=== PATIENT | male | born 1945 | race Two or more races ===

== ENCOUNTER 2024-12-07 21:22 | Inpatient (IN) | payer MEDICARE, MEDICAID ==
[~2024-12-07] VITALS: Ht 160 cm; Wt 75.2 kg
[~2024-12-07 21:22] MED LIST: MEMA1TAB5 PO
--- NOTE | 2024-12-07 21:40 | ED.PDOC ---
History of Present Illness HPI Comments 79 y/o M, with a limited known Hx of CHF, HTN, and STEMI, is BIBA for c/o chest and back pain and shortness of breath, today. Per EMS report, patient is a Azeri speaker and endorses on sudden and unprovoked additional onset of sternal chest pain that radiates towards his back 2x hours ago after being short of breath since 0900, this morning. Patient commented on not being concern with respiratory symptoms, initially, due to family members at home being sick, as well, and his son calling EMS after being en route, already, to their nearest ED facility, due to feeling uncomfortable with driving. He was noted to have been wound with a blood pressure of 212/96 and a SpO2 of 75%RA and wheezing in both upper and lower lung santana and was given 2x Albuterol and 1x Atrovent breathing treatment at 8LPM en route, with mild improvement. At time of assessment, patient still endorses on having pain but was stated to have a SpO2 of 97-98% with breathing treatment. He reports no recent strenuous activities, stressors, travel, or further relevant/pertinent information. He denies having any palpitations, nausea, vomiting, fever, chills, or other associated symptoms or modifiers at this time. 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 Operator, Other (IV acess) Past Medical History PAST MEDICAL HISTORY: CHF, HTN, PR (STEMI) Surgical History: Denies all surgeries Family History Family History: Unknown Social History Smoker: Non-Smoker Alcohol: Denies ETOH Use Drugs: Denies Drug Use Lives In: Home Respiratory: reports: shortness of breath Cardiovascular: reports: chest pain Musculoskeletal: reports: back pain All Other Systems: Reviewed and Negative (negative unless otherwise stated above or in HPI) Physical Exam General Appearance: No Apparent Distress, Normal HEENT: Normal ENT Inspection, Pharynx Normal, TMs Normal Neck: Full Range of Motion, Non-Tender, Normal, Normal Inspection Respiratory: Chest Non-Tender, No Accessory Muscle Use, No Respiratory Distress, Other (coarse breaths sounds, bilaterally, and tachypneic ) Cardiovascular: No Edema, No JVD, No Murmur, No Gallop, Normal Peripheral Pulses, Tachycardia Breast Exam: Deferred Gastrointestinal: No Organomegaly, Non Tender, No Pulsatile Mass, Normal Bowel Sounds, Soft Genitalia: Deferred Pelvic: Deferred Rectal: Deferred Extremities: No calf tenderness, Normal capillary refill, Normal inspection, Normal range of motion, Non-tender, No pedal edema Musculoskeletal : Apperance: Normal Neurologic: Alert, 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 Was a procedure done?: No Differential Dx Considerations may include: PR, PE, ACS, costochondritis, pericarditis, gastritis, gastroenteritis, URI, viral syndrome, musculoskeletal pain X-Ray, Labs, Meds, VS Vital Signs Date Time Temp Pulse Resp B/P (MAP) Pulse Ox O2 Delivery O2 Flow Rate FiO2 12/07/24 21:25 76 12/07/24 21:24 99.0 71 28 212/96 (134) 97 Lab Test 12/07/24 21:38 Range/Units White Blood Count 9.0 4.4-10.8 10^3/uL Red Blood Count 3.13 L 4.5-5.90 10^6/uL Hemoglobin 7.5 L 13.5-17.5 g/dL Hematocrit 25.0 L 41.0-53.0 % Mean Corpuscular Volume 80.0 80.0-100.0 fL Mean Corpuscular Hemoglobin 24.1 L 28.0-32.0 pg Mean Corpuscular Hemoglobin Concent 30.2 L 32.0-36.0 g/dL Red Cell Distribution Width 18.6 H 11.8-14.3 % Platelet Count 106 L 140-450 10^3/uL Mean Platelet Volume 11.3 H 6.9-10.8 fL Neutrophils (%) (Auto) 80.7 H 37.0-80.0 % Lymphocytes (%) (Auto) 11.1 10.0-50.0 % Monocytes (%) (Auto) 5.7 0.0-12.0 % Eosinophils (%) (Auto) 1.8 0.0-7.0 % Basophils (%) (Auto) 0.7 0.0-2.0 % Neutrophils # (Auto) 7.3 1.6-8.6 10 ^3/uL Lymphocytes # (Auto) 1.0 0.4-5.4 10 ^3/uL Monocytes # (Auto) 0.5 0-1.3 10 ^3/uL Eosinophils # (Auto) 0.2 0-0.8 10 ^3/uL Basophils # (Auto) 0.1 0-0.2 10 ^3/uL Nucleated Red Blood Cells 0.1 % Sodium Level 146 H 136-145 mmol/L Potassium Level 3.4 L 3.5-5.1 mmol/L Chloride Level 116 H 98-107 mmol/L Carbon Dioxide Level 23 20-31 mmol/L Anion Gap 7 5-15 Blood Urea Nitrogen 13 9-23 mg/dL Creatinine 0.84 0.700-1.30 mg/dL Glomerular Filtration Rate Calc 89 >90 mL/min BUN/Creatinine Ratio 15.5 10.0-20.0 Serum Glucose 171 H 74-106 mg/dL Calcium Level 7.7 L 8.7-10.4 mg/dL Troponin I High Sensitivity 32 </=54 ng/L B-Type Natriuretic Peptide 439.15 0-100 pg/mL Current Medications Medications (Trade) Dose Ordered Sig/Brandy Route Start Time Stop Time Status Last Admin Albuterol (Ventolin Medneb) 5 mg ONCE ONCE NEB 12/07/24 21:30 12/07/24 21:31 DC 12/07/24 21:46 Ipratropium [place] (Atrovent Medneb) 0.5 mg ONCE ONCE NEB 12/07/24 21:30 12/07/24 21:31 DC 12/07/24 21:46 Time of 1ST Reevaluation: 21:55 Reevaluation 1ST: Unchanged Patient Education/Counseling: Diagnosis, Treatment Family Education/Counseling: No Family Present Additional Information The following tests were ordered, and results were reviewed by me: CXR, troponin, CBC, BNP, BMP Additional Information was gathered from interviewing the following independent historians: EMT I reviewed and agreed with the following test results read by other providers: CXR I discussed treatment and results with medical personnel Departure 1 Departure Time of Disposition: 22:35 (Patient likely with a COPD versus CHF exacerbation. Patient receiving Lasix albuterol ipratropium and azithromycin.) Impression: Primary Impression: Shortness of breath Additional Impressions: Acute systolic (congestive) heart failure COPD exacerbation Disposition: ADMITTED INPATIENT Admit to: Med Surg Condition: Serious Critical Care Note Critical Care Time?: Yes Critical care comment: Acute shortness of breath Authorized and Performed by: Betty Lobo MD Total critical care time: Approximately 37 minutes Due to a high probability of clinically significant, life threatening deterioration, the patient required my highest level of preparedness to intervene emergently and I personally spent this critical care time directly and personally managing the patient. This critical care time included obtaining a history; examining the patient; pulse oximetry; ordering and review of studies; arranging urgent treatment with development of a management plan; evaluation of patient's response to treatment; frequent reassessment; and, discussions with other providers. This critical care time was performed to assess and manage the high probability of imminent, life-threatening deterioration that could result in multi-organ failure. It was exclusive of separately billable procedures and treating other patients and teaching time. Please see my other sections and the rest of the note for further information on patient assessment and treatment. Stability Stability form required: No Heart Score Heart Score: Heart Score Response (Comments) Value History Moderate Suspicious 1 EKG Normal 0 Age >65 2 Risk Factors >3 or Hx ASHD 2 Troponin 1-2 x's Normal limit 1 Total 6 I personally scribed for BETTY LOBO MD ([email or web address]) on 12/07/24 at 21:40. Electronically submitted by Jose Domingo ([email or web address]). BETTY LOBO MD Dec 07, 2024 21:40
[2024-12-07] MEDS: ALBUTEROL SULF 2.5 MG/0.5ML(0.5%) NEB SOLN NEB ONE (21:46)
[2024-12-07] MEDS: IPRATROPIUM BROM 0.5 MG/2.5ML INH SOL NEB ONE (21:46)
[2024-12-07 22:01] LABS: Basophils # (auto) 0.1 10 ^3/uL (0-0.2); Basophils % (auto) 0.7 % (0.0-2.0); Eosinophils # (auto) 0.2 10 ^3/uL (0-0.8); Eosinophils % (auto) 1.8 % (0.0-7.0); Hemoglobin 7.5 g/dL (13.5-17.5); Lymphocytes % (auto) 11.1 % (10.0-50.0); Mean Corpuscular Hemoglobin 24.1 pg (28.0-32.0); Mean Corpuscular Hgb Conc. 30.2 g/dL (32.0-36.0); Monocytes # (auto) 0.5 10 ^3/uL (0-1.3); Monocytes % (auto) 5.7 % (0.0-12.0); Neutrophils # (auto) 7.3 10 ^3/uL (1.6-8.6); Neutrophils % (auto) 80.7 % (37.0-80.0); Nucleated Red Blood Cells % 0.1 %; Red Blood Cells 3.13 10^6/uL (4.5-5.90); Red Cell Distribution Width 18.6 % (11.8-14.3)
[2024-12-07 22:07] LABS: Anion Gap 7 (5-15); Carbon Dioxide 23 mmol/L (20-31)
[2024-12-07 22:12] LABS: BUN/Creatinine Ratio 15.5 (10.0-20.0); Blood Urea Nitrogen 13 mg/dL (9-23)
[2024-12-07 22:13] LABS: Calcium 7.7 mg/dL (8.7-10.4); Chloride 116 mmol/L (98-107); Glucose 171 mg/dL (74-106); Potassium 3.4 mmol/L (3.5-5.1); Sodium 146 mmol/L (136-145)
--- NOTE | 2024-12-07 22:19 | DVH ---
CHEST RADIOGRAPH Indication: sob Technique: Single frontal view of the chest was obtained Comparison: None FINDINGS: Lines and Tubes: None Lungs: Bibasilar infiltrates Pleura: No effusion. No pneumothorax. Cardiomediastinal contours: Mild cardiomegaly Bones: No acute osseous abnormality. IMPRESSION: 1. Findings may represent congestive failure or pneumonia.
[2024-12-07 22:31] LABS: Platelet Count (auto) 106 10^3/uL (140-450)
[2024-12-07] MEDS: AZITHROMYCIN 250 MG TAB PO ONE (22:55)
[2024-12-07 23:00] VITALS: PULSE 58; RESP 19; O2SAT 95
[2024-12-07] MEDS: InsuLIN REG 1unit/0.01ml Soln (100units/ml) SC ONE (23:45)
[2024-12-07] MEDS: ACCU-CHEK COMFORT CURVE STRIP VI ONE (23:45)
[2024-12-08] VITALS (14 sets, daily range): BP systolic 137–155; BP diastolic 40–50; PULSE 62–79; RESP 16–20; TEMP 97.5–99.5; O2SAT 94–100
[2024-12-08] MEDS ORDERED: NITROGLYCERIN 0.4 MG SL TAB SL PRN
[2024-12-08] MEDS ORDERED: MORPHINE SULFATE INJ 2 MG/ml SYRG IV PRN
--- NOTE | 2024-12-08 00:18 | DVHHPRES ---
History of Present Illness Resident Creating Document: CAROLYN CARRERA RESIDENT History of Present Illness Patient is a 79-year-old male with past medical history of COPD, CHF, diabetes, rheumatoid arthritis, gastric ulcer, treated syphilis, hypertension, dyslipidemia, s/p aortic valve replacement, who came in due to shortness of luke aths. According to the patient and son at bedside, for the last 4-5 days he has been experiencing shortness of breath and dyspnea that has progressively gotten worse. Patient also notes a chest pain ongoing for the same duration of time intermittent in nature, burning in character and 6/10 in intensity, patient believes pain was brought on by eating, walking worsens the pain rest relieves the pain, similar symptoms of chest pain before in the past. Patient also notes having sick contacts; his son with flu-like symptoms and diarrhea. Per patient's daughter, patient has had a positive stool occult blood for which he is due to get a colonoscopy next month. On review of systems he is complaining of fatigue, sore throat, cough productive of beverly sputum, dyspnea, shortness of breath and dysuria. Serial troponins were 32, 39. Hemoglobin was 7.5, Hct 25 and chest x-ray showed CHF versus pneumonia. Past Medical History COPD, CHF, diabetes, rheumatoid arthritis, gastric ulcer, treated syphilis, hypertension, dyslipidemia, s/p aortic valve replacement Past Surgical History Aortic valve replacement, bilateral lower extremity surgeries Past Social History Smokin cigarettes per day for the past 60 years Alcohol: Occasionally Drugs: Denies Review of Systems Constitutional: Yes: Malaise; No: Fever, Chills, Sweats, Weakness, Other Eyes: No: Pain, Vision change, Conjunctivae inflammation, Eyelid inflammation, Other, Redness ENT: Nose discharge, Nose congestion, Throat pain; No: Ear pain, Ear discharge, Nose pain, Mouth pain, Mouth swelling, Throat swelling, Other Respiratory: Cough, Shortness of breath, SOB with excertion; No: Dry, Wheezing, Hemoptysis, Pleuritic Pain, Sputum, Wheezing, Other Cardiovascular: Chest Pain; No: Palpitations, Orthopnea, Paroxysmal Noc. Dyspnea, Edema, Lt Headedness, Other Gastrointestinal: No: Nausea, Vomiting, Abdominal Pain, Diarrhea, Constipation, Melena, Hematochezia, Other Genitourinary: Dysuria; No Frequency, No Incontinence, No Hematuria, No Retention, No Other Musculoskeletal: leg pain; No: other, neck pain, shoulder pain, arm pain, back pain, hand pain, foot pain Skin: No: Rash, Lesions, Jaundice, Bruising, Other Neurological: No: Weakness, Numbness, Incoordination, Change in speech, Confusion, Seizures, Other Allergies: Coded Allergies: NO KNOWN ALLERGIES (Unverified , 12/07/24) Exam Vital Signs Vital Signs Date Time Temp Pulse Resp B/P (MAP) Pulse Ox O2 Delivery O2 Flow Rate FiO2 12/07/24 22:57 98.6 74 19 173/53 (93) 95 98.6 12/07/24 21:46 Nasal Cannula* 6 44 General Appearance: Alert, Oriented X3, Cooperative, No acute distress HEENT: Atraumatic, PERRLA, EOMI, Mucous membr. moist/pink Respiratory: Other (Trace crackles, decreased bilateral breath sounds) Cardiovascular: Regular rate, Normal S1, Normal S2 Abdominal: Normal bowel sounds, Soft, No tenderness Extremities: Other (Decreased pedal pulse on the right, +1 lower extremity edema) Skin: No rashes, No significant lesion Neuro: Normal speech, Sensation intact Psych/Mental Status: Mental status NL, Mood NL Labs/Xrays Labs Test 12/07/24 23:25 12/07/24 22:43 12/07/24 21:38 Range/Units Troponin I High Sensitivity 39 </=54 ng/L White Blood Count 9.0 4.4-10.8 10^3/uL Red Blood Count 3.13 L 4.5-5.90 10^6/uL Hemoglobin 7.5 L 13.5-17.5 g/dL Hematocrit 25.0 L 41.0-53.0 % Mean Corpuscular Volume 80.0 80.0-100.0 fL Mean Corpuscular Hemoglobin 24.1 L 28.0-32.0 pg Mean Corpuscular Hemoglobin Concent 30.2 L 32.0-36.0 g/dL Red Cell Distribution Width 18.6 H 11.8-14.3 % Platelet Count 106 L 140-450 10^3/uL Mean Platelet Volume 11.3 H 6.9-10.8 fL Neutrophils (%) (Auto) 80.7 H 37.0-80.0 % Lymphocytes (%) (Auto) 11.1 10.0-50.0 % Monocytes (%) (Auto) 5.7 0.0-12.0 % Eosinophils (%) (Auto) 1.8 0.0-7.0 % Basophils (%) (Auto) 0.7 0.0-2.0 % Neutrophils # (Auto) 7.3 1.6-8.6 10 ^3/uL Lymphocytes # (Auto) 1.0 0.4-5.4 10 ^3/uL Monocytes # (Auto) 0.5 0-1.3 10 ^3/uL Eosinophils # (Auto) 0.2 0-0.8 10 ^3/uL Basophils # (Auto) 0.1 0-0.2 10 ^3/uL Nucleated Red Blood Cells 0.1 % Sodium Level 146 H 136-145 mmol/L Potassium Level 3.4 L 3.5-5.1 mmol/L Chloride Level 116 H 98-107 mmol/L Carbon Dioxide Level 23 20-31 mmol/L Anion Gap 7 5-15 Blood Urea Nitrogen 13 9-23 mg/dL Creatinine 0.84 0.700-1.30 mg/dL Glomerular Filtration Rate Calc 89 >90 mL/min BUN/Creatinine Ratio 15.5 10.0-20.0 Serum Glucose 171 H 74-106 mg/dL Calcium Level 7.7 L 8.7-10.4 mg/dL B-Type Natriuretic Peptide 439.15 0-100 pg/mL Assessment/Plan Assessment/Plan Acute hypoxic respiratory failure Possible community-acquired pneumonia: Gram-positive versus Gram-negative COPD exacerbation due to above - CXR: Findings may represent congestive failure or pneumonia - lower extremity venous Doppler: No deep venous thrombosis in the bilateral lower extremities - IV Rocephin, azithromycin 500 mg p.o. - ipratropium and albuterol med nebs Acute on chronic congestive heart failure Peripheral vascular disease Dyslipidemia Hypertension - BNP 439; CXR: Bibasilar infiltrates - lower extremity arterial Doppler: There is peripheral vascular disease in the right lower extremity evidence thigh monophasic waveforms. No significant stenosis in the right lower extremity. There is 60-75% stenosis in the left common femoral artery. Peripheral vascular disease in the rest of the left lower extremity without high-grade stenosis or occlusion. Bilateral anterior tibial an d peroneal arteries not visualized. - IV furosemide b.i.d. - resumed home medication atorvastatin 80 mg, Plavix 75 mg, amlodipine 5 mg Anemia, positive FOBT; MCV 80 Gastric ulcer - elevated LDH 253 (120-246), mildly elevated reticulocyte count 1.68 (0.5-1.5) - ordered iron panel - ordered stool occult blood - IV Protonix 40 mg - GI consulted Type 2 diabetes, Hb A1c 6.2 - mild sliding scale insulin History of rheumatoid arthritis - monitor DVT prophylaxis: Holding Goals of care: Full code, discussed for >16 minutes with patient, patient's son and daughter on 12/08/24 Plan discussed with patient Plan discussed with Dr. Bravo Plan discussed with: Patient, Daughter, Son, Other (RN) Date of Service: Dec 07, 2024 Billing Provider: GAYLE BRAVO MD Common Visit Codes: 71044-UMBXLOS INP/OBS CARE (HIGH) Secondary Visit Codes: 92340-[id number] CARE PLAN 30 MINUTES CAROLYN CARRERA Dec 08, 2024 00:18 GAYLE BRAVO MD Dec 08, 2024 18:15
[2024-12-08] MEDS: FUROSEMIDE 40 MG/4 ML VIAL IV ONE (00:31)
[2024-12-08 00:32] LABS: COVID19 ANTIGEN SOFIA FIA NEGATIVE (NEGATIVE); Rapid Influenza A Negative (Negative); Rapid Influenza B Negative (Negative)
[2024-12-08] MEDS: POTASSIUM EFFERVESENT TAB 25 MEQ PO ONE ×2 (01:00→03:36)
[2024-12-08] MEDS: cefTRIAXone 1GM/50ML D5W 50 ML IV ONE ×2 (01:00→02:55)
[2024-12-08] MEDS: DEXTROSE (50%) 50ML SYRG IV ONE ×3 (01:00→05:30)
[2024-12-08] MEDS: PANTOPRAZOLE 40 MG/10 ML VIAL INJ IV ONE ×2 (01:00→02:57)
[2024-12-08] MEDS: ACCU-CHEK COMFORT CURVE STRIP VI ONE ×2 (01:00→05:30)
[2024-12-08] MEDS: InsuLIN REG 1unit/0.01ml Soln (100units/ml) SC ONE ×2 (01:00→05:30)
[2024-12-08 01:40] LABS: Urine Bacteria None Seen /hpf (None Seen)
[2024-12-08 02:13] LABS: INR 1.19 (0.9-1.15); Prothrombin Time 12.4 sec (9.3-11.8)
[2024-12-08 02:20] LABS: Urine Blood Negative /uL (Negative); Urine Clarity Clear (Clear); Urine Color Light-Yellow (Yellow); Urine Protein, UAD TRACE (Negative); Urine Squamous Epithelial Cell None Seen /hpf (<5); Urine Urobilinogen Normal (Negative); Urine WBC 3 /HPF (0-3)
[2024-12-08 02:30] LABS: CRP High Sensitivity 0.63 mg/dL (<1.0); Magnesium 1.9 mg/dL (1.6-2.6)
[2024-12-08 02:33] LABS: % Iron Saturation 6.3 % (20-55)
[2024-12-08 02:35] LABS: Thyroid Stimulating Hormone 2.44 uIU/mL (0.55-4.78)
[2024-12-08] MEDS: AZITHROMYCIN 250 MG TAB PO ONE (02:56)
[2024-12-08 03:03] LABS: Erythrocyte Sedimentation Rate 34 mm/hr (0-20)
--- NOTE | 2024-12-08 04:04 | ECG ---
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
--- NOTE | 2024-12-08 04:30 | DVH ---
Bilateral lower extremity venous duplex Clinical History: CALF PAIN ON FLEXION/EXTENSION Comparison: None Technique: Duplex Doppler evaluation of the deep venous systems of both lower extremities from the co mmon femoral veins to the popliteal veins including color Doppler and spectral/pulsed waveform analys is was performed. Findings: RIGHT SIDE: The common femoral vein demonstrates appropriate compressibility and waveform variability. There is compressibility/patency of the great saphenous vein at the proximal thigh. The femoral vein demonstrates appropriate compressibility and waveform variability. The deep femoral vein demonstrates appropriate compressibility and waveform variability. The popliteal vein demonstrates appropriate compressibility and waveform variability. There is normal compressibility at the tibioperoneal trunk. LEFT SIDE: The common femoral vein demonstrates appropriate compressibility and waveform variability. There is compressibility/patency of the great saphenous vein at the proximal thigh. The femoral vein demonstrates appropriate compressibility and waveform variability. The deep femoral vein demonstrates appropriate compressibility and waveform variability. The popliteal vein demonstrates appropriate compressibility and waveform variability. There is normal compressibility at the tibioperoneal trunk. Impression: 1. No deep venous thrombosis in the bilateral lower extremities.
--- NOTE | 2024-12-08 04:36 | DVH ---
BILATERAL Lower Extremity Arterial Duplex Date: 12/08/2024 12:40 AM Clinical History: DEC/ABSENT PEDAL PULSE ON R Comparison: None Technique: Duplex Doppler evaluation including color Doppler and spectral/pulsed waveform analysis of the lower extremity arteries was performed. Finding: RIGHT: Peak systolic velocities are as follows: CAFETERIA HELPER 75 cm/s Deep femoral 35 cm/s SFA proximal 71 cm/s SFA mid-portion 51 cm/s SFA distal 63 cm/s Popliteal 45 cm/s Posterior tibial 40 cm/s Anterior tibial not visualized Peroneal not visualized Dorsalis pedis 40 cm/s The waveforms are monophasic. LEFT: Peak systolic velocities are as follows: CAFETERIA HELPER 202 cm/s Deep femoral 79 cm/s SFA proximal 128 cm/s SFA mid-portion 74 cm/s SFA distal 109 cm/s Popliteal 90 cm/s Posterior tibial 74 cm/s Anterior tibial not visualized Peroneal not visualized Dorsalis pedis 87 cm/s The waveforms are triphasic in the common femoral artery and biphasic in the remaining arteries in th e left lower extremity. REFERENCE VALUES, [facility] ([facility]) vascular Imaging Lab Criteria: Peak systolic velocity ranges (in cm/sec) are as follows: <150 cm/s - <20 % stenosis 150-200 cm/s - 20-49% stenosis 200-300 cm/s - 50-75% stenosis >300 cm/s -> 75% stenosis IMPRESSION: 1. There is peripheral vascular disease in the right lower extremity evidence thigh monophasic wavefo [place]. No significant stenosis in the right lower extremity. 2. There is 60-75% stenosis in the left common femoral artery. Peripheral vascular disease in the res t of the left lower extremity without high-grade stenosis or occlusion. 3. Bilateral anterior tibial and peroneal arteries not visualized.
[2024-12-08] MEDS ORDERED: AMLO1TAB22 PO (05:35)
[2024-12-08] MEDS ORDERED: ATOR-47 PO (05:50)
[2024-12-08] MEDS ORDERED: CLOP75TA70 PO (05:51)
[2024-12-08 05:54] LABS: Basophils # (auto) 0.1 10 ^3/uL (0-0.2); Basophils % (auto) 0.9 % (0.0-2.0); Eosinophils # (auto) 0 10 ^3/uL (0-0.8); Eosinophils % (auto) 0.5 % (0.0-7.0); Hematocrit 27.5 % (41.0-53.0); Hemoglobin 8.7 g/dL (13.5-17.5); Lymphocytes # (auto) 1.7 10 ^3/uL (0.4-5.4); Lymphocytes % (auto) 18.8 % (10.0-50.0); Mean Corpuscular Hemoglobin 24.6 pg (28.0-32.0); Mean Corpuscular Hgb Conc. 31.6 g/dL (32.0-36.0); Mean Corpuscular Volume 77.9 fL (80.0-100.0); Monocytes # (auto) 0.9 10 ^3/uL (0-1.3); Monocytes % (auto) 9.6 % (0.0-12.0); Neutrophils # (auto) 6.5 10 ^3/uL (1.6-8.6); Neutrophils % (auto) 70.2 % (37.0-80.0); Nucleated Red Blood Cells % 0.1 %; Platelet Count (auto) 124 10^3/uL (140-450); Red Blood Cells 3.53 10^6/uL (4.5-5.90); Red Cell Distribution Width 18.2 % (11.8-14.3); White Blood Cell 9.2 10^3/uL (4.4-10.8)
[2024-12-08] MEDS ORDERED: DONE1TAB88 PO (05:56)
[2024-12-08] MEDS ORDERED: FURO20TA3 PO (06:02)
[2024-12-08] MEDS ORDERED: GABA-1250 PO (06:03)
[2024-12-08] MEDS: ALBUTEROL SULF 2.5 MG/0.5ML(0.5%) NEB SOLN NEB SCH (06:03)
[2024-12-08] MEDS: IPRATROPIUM BROM 0.5 MG/2.5ML INH SOL NEB SCH (06:03)
[2024-12-08] MEDS ORDERED: LOSA100T14 PO (06:04)
[2024-12-08] MEDS ORDERED: METF750T54 PO (06:06)
[2024-12-08] MEDS ORDERED: METO-158 PO (06:07)
[2024-12-08] MEDS ORDERED: PANT40TA2 PO (06:08)
[2024-12-08] MEDS ORDERED: MONT-8 PO (06:08)
[2024-12-08] MEDS ORDERED: POTA-36 PO (06:09)
[2024-12-08] MEDS ORDERED: TAMS0.4C39 PO (06:09)
[2024-12-08 06:16] LABS: Albumin 4.1 g/dL (3.2-4.8); Anion Gap 8 (5-15); BUN/Creatinine Ratio 15.8 (10.0-20.0); Bilirubin, Total 0.6 mg/dL (0.2-1.0); Blood Urea Nitrogen 15 mg/dL (9-23); Calcium 9.4 mg/dL (8.7-10.4); Carbon Dioxide 26 mmol/L (20-31); Potassium 3.9 mmol/L (3.5-5.1); Sodium 143 mmol/L (136-145); Total Protein 6.9 g/dL (5.7-8.2)
[2024-12-08] MEDS: FUROSEMIDE 40 MG/4 ML VIAL IV SCH (06:18)
[2024-12-08 06:20] LABS: Alanine Aminotransferase < 9 U/L (7-40); Alkaline Phosphatase 139 U/L (46-116); Aspartate Aminotransferase 11 U/L (13-40); Chloride 109 mmol/L (98-107); Glucose 115 mg/dL (74-106)
[2024-12-08] MEDS: CLOPIDOGREL BISULFATE 75 MG TAB PO SCH (09:56)
[2024-12-08] MEDS: amLODIPine BESYLATE 5 MG TAB PO SCH (09:57)
[2024-12-08] MEDS: PANTOPRAZOLE 40 MG/10 ML VIAL INJ IV SCH (09:57)
--- NOTE | 2024-12-08 13:31 | DVHSR ---
APPROVED REPORT EXAM: Two-dimensional and M-mode echocardiogram with Doppler and color Doppler. Blood Pressure: 162/42 mmHg INDICATION chf RISK FACTORS Height: 5'3, Weight: 170 DIMENSIONS LVDd5.0 (3.8-5.7cm)LA (2D)3.7 (1.9-4.0cm)Aortic Root3.3 (2.0-3.7cm) LVDs3.5 (2.5-4.0cm)LA (MM) (1.9-4.0cm)Aortic Cusp Exc1.0 (1.5-2.0cm) EF (%) 55.0 (55-70%)Rt. Atrium3.5 (1.9-4.0cm)Asc. Aorta cm IVSd1.1 (0.7-1.1cm)RV (D)4.0 (1.8-2.4cm) PWd1.1 (0.7-1.1cm) Mitral Valve MitralMitral Stenosis E wave1.19m/sMV Mean GR.mmHg A wave0.86m/sMV Peak GR.101mmHg E/A ratio1.42D MVAcm2 DECEL [id number] 1/2 Tim[place] Aortic Valve Aortic ValveAortic Stenosis V11.11m/Heidy Mean GR.28mmHg V23.69m/Heidy Peak GR.54mmHg LVOT Diameter2.1 (1.8-2.4cm)Doppler AVA1.04cm2 Pulmonic Valve V21.39m/s Tricuspid Valve TR Velocity2.40m/s [id number] LEFT VENTRICLE The left ventricle is of normal size. Wall thickness is normal. Ejection fraction is normal and is estimated at 55-60%. There is no regional wall motion abnormalities. There is grade II diastolic dy sfunction. E to E prime ratio is more than15 suggestive of elevated left-sided filling pressure. RIGHT VENTRICLE The right ventricle is of normal size. Right ventricular systolic function is normal. ATRIA The left atrium is mildly dilated in size. The right atrium is of normal size. Not well visualized. MITRAL VALVE There is mild mitral annular calcification. No significant regurgitation or stenosis. PULMONIC VALVE Likely normal. TRICUSPID VALVE Normal structure and function. There is mild tricuspid regurgitation. PA systolic pressure is estim ated at 30-35 mm Hg. AORTIC VALVE Leaflets are not well visualized. They appeared to be significantly calcified. Peak aortic velocity is 3.7 m/sec with a mean gradient of 29 mm Hg. Aortic valve area is estimated 1.1 cm2. Dimensionle ss index is 0.31. There is no significant insufficiency. GREAT VESSELS The aortic root is of normal size. Proximal ascending aorta isn't visualized. PERICARDIAL EFFUSION No significant pericardial effusion. IVC is of normal size. Conclusion Calcified aortic valve with [id number] stenosis. Normal left ventricular size and systolic function. Grade II diastolic dysfunction with evidence of elevated left-sided filling pressure. Normal right ventricular size and systolic function. Mildly dilated left atrial chamber size. PA systolic pressure is estimated at 30-35 mm Hg.
[2024-12-08] MEDS: TAMSULOSIN HYDROCHLORIDE 0.4 MG CAP PO ONE (13:54)
--- NOTE | 2024-12-08 15:47 | DVHPNRES ---
Progress Note Date Seen: Dec 08, 2024 Resident Creating Document: DENNIS RODRIGUEZ RESIDENT Medical Necessity Reason Pt with a Central, PICC or Fol: No Subjective Review of Systems Patient is a 79-year-old male with past medical history of COPD, CHF, diabetes, rheumatoid arthritis, gastric ulcer, treated syphilis, hypertension, dyslipidemia, s/p aortic valve replacement, who came in due to shortness of breaths. According to the patient and son at bedside, for the last 4-5 days he has been experiencing shortness of breath and dyspnea that has progressively gotten worse. Patient also notes a chest pain ongoing for the same duration of time intermittent in nature, burning in character and 6/10 in intensity, patient believes pain was brought on by eating, walking worsens the pain rest relieves the pain, similar symptoms of chest pain before in the past. Patient was seen and examined on the bedside. He is alert oriented x3 and on 3 L oxygen through nasal cannula. Complaining of shortness of the breath and chest pain 3/10. Constitutional: No: Fever, Chills, Sweats, Weakness, Malaise, Other Eyes: No: Pain, Vision change, Conjunctivae inflammation, Eyelid inflammation, Other, Redness ENT: No: Ear pain, Ear discharge, Nose pain, Nose discharge, Nose congestion, Mouth pain, Mouth swelling, Throat pain, Throat swelling, Other Respiratory: Shortness of breath, improving No: Cough, Dry,Wheezing, Hemoptysis, Pleuritic Pain, Sputum, Wheezing, Other Cardiovascular: Chest Pain, No Palpitations, Orthopnea, Paroxysmal Noc. Dyspnea, Edema, Lt Headedness, Other Gastrointestinal: No: Nausea, Vomiting, Abdominal Pain, Diarrhea, Constipation, Melena, Hematochezia, Other Musculoskeletal: No: other, neck pain, shoulder pain, arm pain, back pain, hand pain, leg pain, foot pain Neurological:; No: Weakness, Numbness, Incoordination, Change in speech, Confusion, Seizures Objective vital signs Vital Sign Date Time Temp Pulse Resp B/P (MAP) Pulse Ox O2 Delivery O2 Flow Rate FiO2 12/08/24 14:00 70 18 98 12/08/24 13:55 Nasal Cannula 4.0 12/08/24 13:55 36 12/08/24 12:34 98.4 167/48 (87) 98.4 Total Intake and Output 12/07/24 12/07/24 12/08/24 15:00 23:00 07:00 Intake Total 50 ml Balance 50 ml medications Current Medications Medications Dose Ordered Sig/Brandy Route Start Time Stop Time Status Last Admin Dose Admin Nitroglycerin 0.4 mg Q5MINP PRN SL 12/08/24 00:00 Furosemide 40 mg BIDD IV 12/08/24 06:00 12/08/24 06:18 40 MG Pantoprazole Sodium 40 mg DAILY IV 12/08/24 10:00 12/08/24 09:57 40 MG Ceftriaxone Sodium 50 ml @ 100 mls/hr DAILY@2100 IV 12/08/24 21:00 Azithromycin 500 mg DAILY@2100 PO 12/08/24 21:00 Ipratropium [place] 0.5 mg Q8HR NEB 12/08/24 06:00 12/08/24 13:55 0.5 MG Albuterol 2.5 mg Q8HR NEB 12/08/24 06:00 12/08/24 13:55 2.5 MG Atorvastatin Calcium 80 mg HS PO 12/08/24 22:00 Amlodipine Besylate 5 mg DAILY PO 12/08/24 10:00 12/08/24 09:57 5 MG Clopidogrel Bisulfate 75 mg DAILY PO 12/08/24 10:00 12/08/24 09:56 75 MG Tamsulosin HCl 0.4 mg QPM PO 12/08/24 18:00 Examination Physical examination: General Appearance: Alert, Oriented X3, Cooperative, mild distress , 3L o2 through nasal canula HEENT: Atraumatic, PERRLA, EOMI, Mucous membrane moist/pink Respiratory: Decreased breath sound and bilateral basal crackles. Cardiovascular: Regular rate, Normal S1, Normal S2, No murmurs, no chest wall tenderness Abdominal: Normal bowel sounds, Soft, No tenderness, No hepatospenomegaly, No masses Extremities: No clubbing, No cyanosis, No edema, Normal pulses, No tenderness/swelling Skin: No rashes, No breakdown, No significant lesion Neuro: Use walker, Normal speech, Strength at 5/5 X4 ext, Normal tone, Sensation intact, grossly intact cranial nerves. Psych/Mental Status: Mental status NL, Mood NL laboratory and microbiology Laboratory Tests 12/08/24 05:25 Test 12/08/24 05:25 Range/Units Serum Glucose 115 H 74-106 mg/dL Labs and/or images reviewed: Labs reviewed by me, Image(s) reviewed by me Problem List/Assessment/Plan Problem List/Assessment/Plan Assessment and plan: # Acute On chronic hypoxic respiratory failure # Possible community-acquired pneumonia: Gram-positive versus Gram-negative # COPD exacerbation due to above - CXR: Findings may represent congestive failure or pneumonia - Lower extremity venous Doppler: No deep venous thrombosis in the bilateral lower extremities - IV Rocephin i gm , azithromycin 500 mg p.o. daily. - Duoneb with ipratropium and albuterol q.8 hours # Acute on chronic diastolic heart failure # Peripheral vascular disease # Dyslipidemia # Hypertension - BNP 439; CXR: Bibasilar infiltrates - Echo on 12/08/24 revealed ejection fraction 55-60% and grade 2 diastolic dysfunction - Lower extremity arterial Doppler: There is peripheral vascular disease in the right lower extremity evidence thigh monophasic waveforms. No significant stenosis in the right lower extremity. There is 60-75% stenosis in the left common femoral artery. Peripheral vascular disease in the rest of the left lower extremity without high-grade stenosis or occlusion. Bilateral anterior tibial and peroneal arteries not visualized. - IV furosemide b.i.d. - resumed home medication atorvastatin 80 mg, Plavix 75 mg, amlodipine 5 mg #Possible chronic iron defieciency anemia - elevated LDH 253 (120-246), mildly elevated reticulocyte count 1.68 (0.5-1.5) - Iron panel showed low iron, normal TIBC and low saturation - ordered stool occult blood - IV Protonix 40 mg daily. - GI consulted # Type 2 diabetes, Hb A1c 6.2 - Mild sliding scale insulin # History of rheumatoid arthritis - monitor DVT prophylaxis: Hold due to the possibility of bleeding Goals of care: Full code, discussed for >16 minutes with patient, patient's son and daughter on 12/08/24 Plan discussed with Plan discussed with: Patient, Other My Orders My Orders Orders - DENNIS RODRIGUEZ Procedure Category Date Status Time Bladder Scan ED NURSING 12/08/24 Transmitted Date of Service: Dec 08, 2024 Billing Provider: FELIX CAR MD Common Visit Codes: [id number] INP/OBS CARE(HIGH) DENNIS RODRIGUEZ Dec 08, 2024 15:47 FELIX CAR MD Dec 09, 2024 13:08
[2024-12-08] MEDS: TAMSULOSIN HYDROCHLORIDE 0.4 MG CAP PO SCH (17:22)
[2024-12-08] MEDS: AZITHROMYCIN 250 MG TAB PO SCH (21:04)
[2024-12-08] MEDS: ATORVASTATIN 20 MG TAB PO SCH (21:05)
[2024-12-08] MEDS: cefTRIAXone 1GM/50ML D5W 50 ML IV SCH (21:05)
--- NOTE | 2024-12-08 21:13 | DVHINCON2 ---
Date of service: Dec 08, 2024 Referring Physician Endy Robert Reason for Consultation Possible GI bleed History of Present Illness Patient is a 79-year-old male with past medical history of COPD, CHF, diabetes, rheumatoid arthritis, gastric ulcer, treated syphilis, hypertension, dyslipidemia, s/p aortic valve replacement, who came in due to shortness of breaths. According to the patient and son at bedside, for the last 4-5 days he has been experiencing shortness of breath and dyspnea that has progressively gotten worse. Patient also notes a chest pain ongoing for the same duration of time intermittent in nature, burning in character and 6/10 in intensity, patient believes pain was brought on by eating, walking worsens the pain rest relieves the pain, similar symptoms of chest pain before in the past. Patient also notes having sick contacts; his son with flu-like symptoms and diarrhea. Per patient's daughter, patient has had a positive stool occult blood for which he is due to get a colonoscopy next month. Patient's family is requesting if we can get a colonoscopy done while he is in the hospital. On review of systems he is complaining of fatigue, sore throat, cough productive of beverly sputum, dyspnea, shortness of breath and dysuria. Serial troponins were 32, 39. Hemoglobin was 7.5, Hct 25 and chest x-ray showed CHF versus pneumonia. Past Medical History Past Medical History COPD, CHF, diabetes, rheumatoid arthritis, gastric ulcer, treated syphilis, hypertension, dyslipidemia, s/p aortic valve replacement Past Surgical History Past Surgical History Aortic valve replacement, bilateral lower extremity surgeries Family History: FH: cancer G8 MOTHER Allergies: Coded Allergies: NO KNOWN ALLERGIES (Unverified , 12/07/24) Home Meds Reported Medications Memantine Hydrochloride (Memantine HCl) 10 Mg Tab, 1 12/08/24 Tamsulosin Hcl (Tamsulosin Hcl) 0.4 Mg Cap, 0.4 MG PO QPM for 30 Days, MG 12/08/24 Potassium Chloride (POTASSIUM CHLORIDE CR) 10 Meq Tb, 10 MEQ PO, TAB 12/08/24 Pantoprazole Sodium Sesquihydr (Protonix) 40 Mg Tab, 40 MG PO DAILY, #30 TAB 12/08/24 Montelukast Sodium (MONTELUKAST SODIUM) 10 Mg Tab, 10 MG OR, TAB 12/08/24 Metoprolol Tartrate (Metoprolol Tartrate) 50 Mg Tab, 50 MG PO for 30 Days, MG 12/08/24 Metformin Hydrochloride (Metformin Hcl Er) 750 Mg Tab, 750 MG PO, TAB 12/08/24 Losartan Potassium (Cozaar) 100 Mg Tab, 1 TAB PO DAILY, #30 TAB 5 Refills 12/08/24 Gabapentin (Gabapentin) 300 Mg Cap, 300 MG PO, MG 12/08/24 Furosemide (Furosemide) 20 Mg Tab, 20 MG PO DAILY, MG 12/08/24 Donepezil Hydrochloride (DONEPEZIL HCL) 10 Mg Tab, 10 MG PO DAILYP, MG 12/08/24 Clopidogrel Bisulfate (CLOPIDOGREL) 75 Mg Tab, 75 MG PO DAILY, MG 12/08/24 Atorvastatin Calcium (ATORVASTATIN CALCIUM) 80 Mg Tab, 1 TAB PO DAILY, #30 TAB 5 Refills 12/08/24 Amlodipine Besylate (Amlodipine Besylate) 5 Mg Tab, 5 MG PO DAILY, MG 12/08/24 Current Medications Current Medications Medications (Trade) Dose Ordered Sig/Brandy Route PRN Reason Start Time Stop Time Status Last Admin Nitroglycerin (Ntrostat Sublingual) 0.4 mg Q5MINP PRN SL FOR CHEST PAIN 12/08/24 00:00 Morphine Sulfate 2 mg Q30M PRN IV FOR CHEST PAIN 12/08/24 00:00 12/08/24 06:16 DC Furosemide (Lasix Injection) 40 mg BIDD IV 12/08/24 06:00 12/08/24 17:22 Pantoprazole Sodium (Protonix) 40 mg DAILY IV 12/08/24 10:00 12/08/24 09:57 Ceftriaxone Sodium 50 ml @ 100 mls/hr DAILY@2100 IV 12/08/24 21:00 Azithromycin (Zithromax Tablet) 500 mg DAILY@2100 PO 12/08/24 21:00 Ipratropium [place] (Atrovent Medneb) 0.5 mg Q8HR NEB 12/08/24 06:00 12/08/24 13:55 Albuterol (Ventolin Medneb) 2.5 mg Q8HR NEB 12/08/24 06:00 12/08/24 13:55 Atorvastatin Calcium (Lipitor) 80 mg HS PO 12/08/24 22:00 Amlodipine Besylate (Norvasc Tablet) 5 mg DAILY PO 12/08/24 10:00 12/08/24 09:57 Clopidogrel Bisulfate (Plavix) 75 mg DAILY PO 12/08/24 10:00 12/08/24 09:56 Tamsulosin HCl (Flomax) 0.4 mg QPM PO 12/08/24 18:00 12/08/24 17:22 Vital Signs Vital Signs Date Time Temp Pulse Resp B/P (MAP) Pulse Ox O2 Delivery O2 Flow Rate FiO2 12/08/24 19:56 Nasal Cannula* 4 36 12/08/24 17:22 137/43 12/08/24 16:37 97.9 67 16 94 97.9 Physical Exam General Appearance: Alert, Oriented X3, Cooperative, No acute distress HEENT: Atraumatic, PERRLA, EOMI Respiratory: Other (Trace crackles, decreased bilateral breath sounds) Cardiovascular: Regular rate, Normal S1, Normal S2 Abdominal: Normal bowel sounds, Soft, No tenderness Extremities: Other (Decreased pedal pulse on the right, +1 lower extremity edema) Skin: No rashes, No significant lesion Neuro: Normal speech, Sensation intact Psych/Mental Status: Mental status NL, Mood NL Labs/Diagnostic Data Labs Test 12/08/24 06:14 12/08/24 05:25 12/08/24 01:23 12/07/24 23:30 Range/Units POC Glucose 130 H 70-106 mg/dl White Blood Count 9.2 4.4-10.8 10^3/uL Red Blood Count 3.53 L 4.5-5.90 10^6/uL Hemoglobin 8.7 #L 13.5-17.5 g/dL Hematocrit 27.5 L 41.0-53.0 % Mean Corpuscular Volume 77.9 L 80.0-100.0 fL Mean Corpuscular Hemoglobin 24.6 L 28.0-32.0 pg Mean Corpuscular Hemoglobin Concent 31.6 L 32.0-36.0 g/dL Red Cell Distribution Width 18.2 H 11.8-14.3 % Platelet Count 124 L 140-450 10^3/uL Mean Platelet Volume 10.8 6.9-10.8 fL Neutrophils (%) (Auto) 70.2 37.0-80.0 % Lymphocytes (%) (Auto) 18.8 10.0-50.0 % Monocytes (%) (Auto) 9.6 0.0-12.0 % Eosinophils (%) (Auto) 0.5 0.0-7.0 % Basophils (%) (Auto) 0.9 0.0-2.0 % Neutrophils # (Auto) 6.5 1.6-8.6 10 ^3/uL Lymphocytes # (Auto) 1.7 0.4-5.4 10 ^3/uL Monocytes # (Auto) 0.9 0-1.3 10 ^3/uL Eosinophils # (Auto) 0 0-0.8 10 ^3/uL Basophils # (Auto) 0.1 0-0.2 10 ^3/uL Nucleated Red Blood Cells 0.1 % Sodium Level 143 136-145 mmol/L Potassium Level 3.9 3.5-5.1 mmol/L Chloride Level 109 H 98-107 mmol/L Carbon Dioxide Level 26 20-31 mmol/L Anion Gap 8 5-15 Blood Urea Nitrogen 15 9-23 mg/dL Creatinine 0.95 0.700-1.30 mg/dL Glomerular Filtration Rate Calc 82 >90 mL/min BUN/Creatinine Ratio 15.8 10.0-20.0 Serum Glucose 115 H 74-106 mg/dL Calcium Level 9.4 8.7-10.4 mg/dL Total Bilirubin 0.6 0.2-1.0 mg/dL Aspartate Amino Transferase (AST) 11 L 13-40 U/L Alanine Aminotransferase (ALT) < 9 7-40 U/L Alkaline Phosphatase 139 H 46-116 U/L Total Protein 6.9 5.7-8.2 g/dL Albumin 4.1 3.2-4.8 g/dL Erythrocyte Sedimentation Rate 34 H 0-20 mm/hr Reticulocyte Count (auto) 1.68 H 0.5-1.5 % Prothrombin Time 12.4 H 9.3-11.8 sec Prothrombin Time INR 1.19 H 0.9-1.15 D-Dimer, Quantitative 0.72 H 0.0-0.49 mg/L FEU Hemoglobin A1c 6.2 H <5.7 % A1C Magnesium Level 1.9 1.6-2.6 mg/dL Iron Level 23 L 65-175 ug/dL Total Iron Binding Capacity 367 250-425 ug/dL Percent Iron Saturation 6.3 L 20-55 % Lactate Dehydrogenase 253 H 120-246 U/L Troponin I High Sensitivity 53 </=54 ng/L C-Reactive Protein High Sensitivity 0.63 <1.0 mg/dL Thyroid Stimulating Hormone (TSH) 2.44 0.55-4.78 uIU/mL Urine Color Light-yellow Yellow Urine Clarity Clear Clear Urine pH 6.0 5.0-9.0 Urine Specific [place] 1.010 1.001-1.035 Urine Protein Trace H Negative Urine Ketones Negative Negative Urine Blood Negative Negative /uL Urine Nitrite Negative Negative Urine Bilirubin Negative Negative Urine Urobilinogen Normal Negative mg/dL Urine Leukocyte Esterase Negative Negative /uL Urine RBC 3 0 - 3 /hpf Urine Microscopic WBC 3 0-3 /HPF Urine Squamous Epithelial Cells None seen <5 /hpf Urine Bacteria None seen None Seen /hpf Urine Glucose Normal Normal mg/dL Test 12/07/24 23:25 12/07/24 21:38 Range/Units Influenza Type A Antigen Negative Negative Influenza Type B Antigen Negative Negative SARS-CoV-2 Antigen (Rapid) Negative NEGATIVE B-Type Natriuretic Peptide 439.15 0-100 pg/mL Problems(with codes): (1) Pneumonia (2) Acute systolic (congestive) heart failure (3) COPD exacerbation (4) Shortness of breath (5) Microcytic anemia Plan/Recommendation Plan We will check stool for occult blood Continue IV Protonix 40 mg Check vitamin B12 and serum folate level Patient is currently not stable for endoscopic procedure We will continue medical stabilization from a cardiopulmonary point of view Once the patient is clinically improved I will plan for a possible colonoscopy later on in this admission I will follow this patient with you closely Monitor labs Transfuse 1 unit PRBC if hemoglobin is less than seven Plan discussed with: Patient, Son CLIFF DO MD Dec 08, 2024 21:13
[2024-12-09] VITALS (15 sets, daily range): BP systolic 122–157; BP diastolic 40–63; PULSE 63–75; RESP 17–20; TEMP 97.8–98.8; O2SAT 90–99
[2024-12-09 06:38] LABS: Basophils # (auto) 0.1 10 ^3/uL (0-0.2); Basophils % (auto) 1.1 % (0.0-2.0); Eosinophils # (auto) 0.2 10 ^3/uL (0-0.8); Eosinophils % (auto) 2.1 % (0.0-7.0); Hematocrit 27.7 % (41.0-53.0); Hemoglobin 8.6 g/dL (13.5-17.5); Lymphocytes # (auto) 1.4 10 ^3/uL (0.4-5.4); Lymphocytes % (auto) 16.8 % (10.0-50.0); Mean Corpuscular Volume 77.3 fL (80.0-100.0); Monocytes # (auto) 0.7 10 ^3/uL (0-1.3); Monocytes % (auto) 7.9 % (0.0-12.0); Neutrophils % (auto) 72.1 % (37.0-80.0); Platelet Count (auto) 136 10^3/uL (140-450); Red Blood Cells 3.58 10^6/uL (4.5-5.90); Red Cell Distribution Width 18.2 % (11.8-14.3); White Blood Cell 8.3 10^3/uL (4.4-10.8)
[2024-12-09 06:53] LABS: Calcium 9.1 mg/dL (8.7-10.4); Potassium 3.9 mmol/L (3.5-5.1); Sodium 142 mmol/L (136-145)
[2024-12-09 06:54] LABS: Anion Gap 6 (5-15); Carbon Dioxide 28 mmol/L (20-31)
[2024-12-09 06:59] LABS: Blood Urea Nitrogen 16 mg/dL (9-23)
[2024-12-09 07:02] LABS: Chloride 108 mmol/L (98-107); Glucose 106 mg/dL (74-106)
[2024-12-09 07:06] LABS: Folate (Folic Acid) 15.75 ng/mL (>5.38)
[2024-12-09 07:07] LABS: Ferritin 11.6 ng/mL (22-322)
[2024-12-09] MEDS: CYANOCOBALAMIN (B-12) 1000 MCG/1 ML VIAL IM ONE (08:48)
[2024-12-09] MEDS: LOSARTAN POTASSIUM 50 MG TAB PO SCH (08:49)
[2024-12-09 09:23] LABS: Hepatitis B Surface Antigen Negative (Negative); Hepatitis C Antibody Negative (Negative)
--- NOTE | 2024-12-09 11:49 | DVHPNRES ---
Progress Note Date Seen: Dec 09, 2024 Resident Creating Document: DENNIS RODRIGUEZ RESIDENT Medical Necessity Reason Pt with a Central, PICC or Fol: No Subjective Review of Systems Patient is a 79-year-old male with past medical history of COPD, CHF, diabetes, rheumatoid arthritis, gastric ulcer, treated syphilis, hypertension, dyslipidemia, s/p aortic valve replacement, who came in due to shortness of breaths. According to the patient and son at bedside, for the last 4-5 days he has been experiencing shortness of breath and dyspnea that has progressively gotten worse. Patient also notes a chest pain ongoing for the same duration of time intermittent in nature, burning in character and 6/10 in intensity, patient believes pain was brought on by eating, walking worsens the pain rest relieves the pain, similar symptoms of chest pain before in the past. Patient was seen and examined on the bedside. He is alert oriented x3 and on 3 L oxygen through nasal canula. Complains of back pain and no other active complaints. Objective vital signs Vital Sign Date Time Temp Pulse Resp B/P (MAP) Pulse Ox O2 Delivery O2 Flow Rate FiO2 12/09/24 10:00 93 Nasal Cannula* 2 28 12/09/24 08:49 148/50 12/09/24 08:00 70 18 12/09/24 05:00 98.0 98.0 Total Intake and Output 12/08/24 12/08/24 12/09/24 15:00 23:00 07:00 Intake Total 250 ml 0 ml Output Total 650 ml Balance 250 ml -650 ml medications Current Medications Medications Dose Ordered Sig/Brandy Route Start Time Stop Time Status Last Admin Dose Admin Nitroglycerin 0.4 mg Q5MINP PRN SL 12/08/24 00:00 Pantoprazole Sodium 40 mg DAILY IV 12/08/24 10:00 12/09/24 08:47 40 MG Ceftriaxone Sodium 50 ml @ 100 mls/hr DAILY@2100 IV 12/08/24 21:00 12/08/24 21:05 100 MLS/HR Azithromycin 500 mg DAILY@2100 PO 12/08/24 21:00 12/08/24 21:04 500 MG Ipratropium [place] 0.5 mg Q8HR NEB 12/08/24 06:00 12/09/24 07:06 0.5 MG Albuterol 2.5 mg Q8HR NEB 12/08/24 06:00 12/09/24 07:06 2.5 MG Atorvastatin Calcium 80 mg HS PO 12/08/24 22:00 12/08/24 21:05 80 MG Amlodipine Besylate 5 mg DAILY PO 12/08/24 10:00 12/09/24 08:49 5 MG Clopidogrel Bisulfate 75 mg DAILY PO 12/08/24 10:00 12/09/24 08:48 75 MG Tamsulosin HCl 0.4 mg QPM PO 12/08/24 18:00 12/08/24 17:22 0.4 MG Losartan Potassium 50 mg DAILY PO 12/09/24 10:00 12/09/24 08:49 50 MG Iron Sucrose 110 ml @ 110 mls/hr DAILY@1200 IV 12/09/24 12:00 12/13/24 12:59 Acetaminophen/ Hydrocodone Bitart 1 tab Q6HPRN PRN PO 12/09/24 11:45 Hydralazine HCl 10 mg Q6HP PRN IV 12/09/24 11:45 Examination Physical examination: General Appearance: Alert, Oriented X3, Cooperative, mild distress , 3L o2 through nasal canula HEENT: Atraumatic, PERRLA, EOMI, Mucous membrane moist/pink Respiratory: Decreased breath sound and bilateral basal crackles. Cardiovascular: Regular rate, Normal S1, Normal S2, No murmurs, no chest wall tenderness Abdominal: Normal bowel sounds, Soft, No tenderness, No hepatospenomegaly, No masses Extremities: No clubbing, No cyanosis, No edema, Normal pulses, No tenderness/swelling Skin: No rashes, No breakdown, No significant lesion Neuro: Use walker, Normal speech, Strength at 5/5 X4 ext, Normal tone, Sensation intact, grossly intact cranial nerves. Psych/Mental Status: Mental status NL, Mood NL laboratory and microbiology Laboratory Tests 12/09/24 05:40 Test 12/09/24 10:53 Range/Units Serum Glucose Pending Labs and/or images reviewed: Labs reviewed by me, Image(s) reviewed by me Problem List/Assessment/Plan Problem List/Assessment/Plan Assessment and plan: # Acute On chronic hypoxic respiratory failure # Possible community-acquired pneumonia: Gram-positive versus Gram-negative # COPD exacerbation due to above - PSI score for CAP 118, risk class IV, 8.2-9.3% mortality. - CXR: Findings may represent congestive failure or pneumonia - Lower extremity venous Doppler: No deep venous thrombosis in the bilateral lower extremities - IV Rocephin i gm , azithromycin 500 mg p.o. daily. - Duoneb with ipratropium and albuterol q.8 hours # Acute on chronic diastolic heart failure # Peripheral vascular disease # Dyslipidemia # Hypertension - BNP 439; CXR: Bibasilar infiltrates - Echo on 12/08/24 revealed ejection fraction 55-60% and grade 2 diastolic dysfunction - Lower extremity arterial Doppler: There is peripheral vascular disease in the right lower extremity evidence thigh monophasic waveforms. No significant stenosis in the right lower extremity. There is 60-75% stenosis in the left common femoral artery. Peripheral vascular disease in the rest of the left lower extremity without high-grade stenosis or occlusion. Bilateral anterior tibial and peroneal arteries not visualized. - Resumed home medication atorvastatin 80 mg, Plavix 75 mg, amlodipine 5 mg # Possible chronic iron defieciency anemia - Elevated LDH 253 (120-246), mildly elevated reticulocyte count 1.68 (0.5-1.5) - Iron panel showed low iron, normal TIBC and low saturation - Ordered stool occult blood - IV Iron daily. - IV Protonix 40 mg daily. - GI recommended possible EGD and colonoscopy tomorrow after cardiac clearance. - NPO after midnight # Vitamin B12 deficiency - Cyanocobalamin 1000 mcg IM once. # Type 2 diabetes, Hb A1c 6.2 - Mild sliding scale insulin # History of rheumatoid arthritis - monitor DVT prophylaxis: Hold due to the possibility of bleeding Goals of care: Full code, discussed for >16 minutes with patient, patient's son and daughter on 12/08/24 Plan discussed with Plan discussed with: Patient, Other My Orders My Orders Orders - DENNIS RODRIGUEZ RESIDENT Procedure Category Date Status Time Losartan Tablet PHA 12/09/24 In Process (Cozaar Tablet) 10:00 Iron Sucrose Complex PHA 12/09/24 In Process (Venofer) 12:00 Basic Metabolic Panel LAB 12/09/24 In Process 03:00 Hydrocodone-Acet PHA 12/09/24 In Process 5/325mg Tab ([place] 11:45 Hydralazine Injection PHA 12/09/24 In Process (Apresoline Inject 11:45 Date of Service: Dec 09, 2024 Billing Provider: FELIX CAR MD Common Visit Codes: [id number] INP/OBS CARE(HIGH) MICHAELMARÍADENNIS RESIDENT Dec 09, 2024 11:49 FELIX CAR MD Dec 13, 2024 09:40
[2024-12-09] MEDS: IRON SUCROSE COMPLEX 110 ML IV SCH (11:58)
[2024-12-09] MEDS: HYDROcodone-ACET 5/325MG TAB PO PRN (11:58)
[2024-12-09 12:03] LABS: Calcium 8.9 mg/dL (8.7-10.4); Chloride 104 mmol/L (98-107); Potassium 3.5 mmol/L (3.5-5.1); Sodium 137 mmol/L (136-145)
[2024-12-09 12:06] LABS: Glucose 184 mg/dL (74-106)
[2024-12-09 12:16] LABS: Anion Gap 5 (5-15); BUN/Creatinine Ratio 16.2 (10.0-20.0); Blood Urea Nitrogen 19 mg/dL (9-23); Carbon Dioxide 28 mmol/L (20-31)
[2024-12-09] MEDS: GOLYTELY 4L KIT PO ONE ×2 (19:52→21:32)
--- NOTE | 2024-12-09 21:31 | DVHPN2 ---
Progress Note - Dictate Date Seen: Dec 09, 2024 Medical Necessity Reason Pt with a Central, PICC or Fol: No Subjective Pt is slightly better on #L NC Echo : Moderate aortic stenosis EF 50 -55 % No active GI bleeding reported Hb stable 8.6 vital signs Vital Sign Date Time Temp Pulse Resp B/P (MAP) Pulse Ox O2 Delivery O2 Flow Rate FiO2 12/09/24 21:00 98.1 70 20 143/41 (75) 90 98.1 12/09/24 20:00 Nasal Cannula* 2 28 Total Intake and Output 12/08/24 12/08/24 12/09/24 15:00 23:00 07:00 Intake Total 250 ml 0 ml Output Total 650 ml Balance 250 ml -650 ml medications Current Medications Medications Dose Ordered Sig/Brandy Route Start Time Stop Time Status Last Admin Dose Admin Nitroglycerin 0.4 mg Q5MINP PRN SL 12/08/24 00:00 Pantoprazole Sodium 40 mg DAILY IV 12/08/24 10:00 12/09/24 08:47 40 MG Ceftriaxone Sodium 50 ml @ 100 mls/hr DAILY@2100 IV 12/08/24 21:00 12/08/24 21:05 100 MLS/HR Azithromycin 500 mg DAILY@2100 PO 12/08/24 21:00 12/08/24 21:04 500 MG Ipratropium [place] 0.5 mg Q8HR NEB 12/08/24 06:00 12/09/24 20:01 0.5 MG Albuterol 2.5 mg Q8HR NEB 12/08/24 06:00 12/09/24 20:01 2.5 MG Atorvastatin Calcium 80 mg HS PO 12/08/24 22:00 12/08/24 21:05 80 MG Amlodipine Besylate 5 mg DAILY PO 12/08/24 10:00 12/09/24 08:49 5 MG Clopidogrel Bisulfate 75 mg DAILY PO 12/08/24 10:00 12/09/24 08:48 75 MG Tamsulosin HCl 0.4 mg QPM PO 12/08/24 18:00 12/09/24 17:21 0.4 MG Losartan Potassium 50 mg DAILY PO 12/09/24 10:00 12/09/24 08:49 50 MG Iron Sucrose 110 ml @ 110 mls/hr DAILY@1200 IV 12/09/24 12:00 12/13/24 12:59 12/09/24 11:58 110 MLS/HR Acetaminophen/ Hydrocodone Bitart 1 tab Q6HPRN PRN PO 12/09/24 11:45 12/09/24 11:58 1 TAB Hydralazine HCl 10 mg Q6HP PRN IV 12/09/24 11:45 objective General Appearance: Alert, Oriented X3, Cooperative, No acute distress HEENT: Atraumatic, PERRLA, EOMI Respiratory: Other (Trace crackles, decreased bilateral breath sounds) Cardiovascular: Regular rate, Normal S1, Normal S2 Abdominal: Normal bowel sounds, Soft, No tenderness Extremities: Other (Decreased pedal pulse on the right, +1 lower extremity edema) Skin: No rashes, No significant lesion Neuro: Normal speech, Sensation intact Psych/Mental Status: Mental status NL, Mood NL laboratory and microbiology Laboratory Tests 12/09/24 10:53 12/09/24 05:40 Test 12/09/24 10:53 Range/Units Serum Glucose 184 H 74-106 mg/dL Problems(with codes): (1) Microcytic anemia (2) Acute systolic (congestive) heart failure (3) COPD exacerbation (4) Shortness of breath Prognosis PLAN Family requesting inpt colonoscopy Will also arrange EGD Pt with moderate procedure risk Cardiology care ongoing Plan discussed with: Patient, Other (Nurse and Dr Henriquez) CLIFF DO MD Dec 09, 2024 21:31
[2024-12-09] MEDS: MAGNESIUM CITRATE SOLUTION 300 ML BTL PO ONE (22:02)
[2024-12-10] VITALS (15 sets, daily range): BP systolic 137–171; BP diastolic 40–53; PULSE 69–78; RESP 16–20; TEMP 97.7–98.5; O2SAT 90–99
[2024-12-10] MEDS: MAGNESIUM CITRATE SOLUTION 300 ML BTL PO ONE (05:36)
[2024-12-10] MEDS: GOLYTELY 4L KIT PO ONE (05:36)
[2024-12-10 06:14] LABS: Basophils # (auto) 0.1 10 ^3/uL (0-0.2); Eosinophils # (auto) 0.4 10 ^3/uL (0-0.8); Hematocrit 27.8 % (41.0-53.0); Hemoglobin 8.8 g/dL (13.5-17.5); Lymphocytes # (auto) 1.4 10 ^3/uL (0.4-5.4); Monocytes # (auto) 0.8 10 ^3/uL (0-1.3); Nucleated Red Blood Cells % 0.1 %
[2024-12-10 06:18] LABS: Basophils % (auto) 1.4 % (0.0-2.0); Eosinophils % (auto) 4.8 % (0.0-7.0); Lymphocytes % (auto) 16.5 % (10.0-50.0); Mean Corpuscular Hemoglobin 24.4 pg (28.0-32.0); Mean Corpuscular Hgb Conc. 31.8 g/dL (32.0-36.0); Mean Corpuscular Volume 76.8 fL (80.0-100.0); Monocytes % (auto) 10.2 % (0.0-12.0); Neutrophils # (auto) 5.6 10 ^3/uL (1.6-8.6); Neutrophils % (auto) 67.1 % (37.0-80.0); Platelet Count (auto) 125 10^3/uL (140-450); Red Blood Cells 3.62 10^6/uL (4.5-5.90); Red Cell Distribution Width 18.7 % (11.8-14.3); White Blood Cell 8.3 10^3/uL (4.4-10.8)
[2024-12-10 06:29] LABS: Chloride 104 mmol/L (98-107); Sodium 142 mmol/L (136-145)
[2024-12-10 06:30] LABS: Calcium 9.4 mg/dL (8.7-10.4); Potassium 3.4 mmol/L (3.5-5.1)
[2024-12-10 06:35] LABS: BUN/Creatinine Ratio 16.7 (10.0-20.0); Blood Urea Nitrogen 18 mg/dL (9-23)
[2024-12-10 06:40] LABS: Glucose 111 mg/dL (74-106)
[2024-12-10] MEDS: POTASSIUM EFFERVESENT TAB 25 MEQ PO ONE (06:57)
[2024-12-10 08:28] LABS: Anion Gap 9 (5-15); Carbon Dioxide 29 mmol/L (20-31)
--- NOTE | 2024-12-10 12:23 | ANESTHESIA ---
Anesthesia Pre-Anesthetic Evaluation Pre-Op Diagnosis: Patient is a 79-year-old male with past medical history of COPD, CHF, diabetes, rheumatoid arthritis, gastric ulcer, treated syphilis, hypertension, dyslipidemia, s/p aortic valve replacement, who came in due to shortness of breaths. According to the patient and son at bedside, for the last 4-5 days he has been experiencing shortness of breath and dyspnea that has progressively gotten worse. Patient also notes a chest pain ongoing for the same duration of time intermittent in nature, burning in character and 6/10 in intensity, patient believes pain was brought on by eating, walking worsens the pain rest relieves the pain, similar symptoms of chest pain before in the past. Microcytic anemia Proposed Procedure: EGD and Colonoscopy Previous Anesthetics/Surgeries: see hpi/preop diagnosis Current Medications Reviewed: Med reconciliati Reviewed Current Medications: Current Medications Medications Dose Ordered Sig/Brandy Route Start Time Stop Time Status Last Admin Dose Admin Nitroglycerin 0.4 mg Q5MINP PRN SL 12/08/24 00:00 Pantoprazole Sodium 40 mg DAILY IV 12/08/24 10:00 12/09/24 08:47 40 MG Ceftriaxone Sodium 50 ml @ 100 mls/hr DAILY@2100 IV 12/08/24 21:00 12/09/24 22:04 100 MLS/HR Azithromycin 500 mg DAILY@2100 PO 12/08/24 21:00 12/09/24 22:03 500 MG Ipratropium [place] 0.5 mg Q8HR NEB 12/08/24 06:00 12/10/24 06:16 0.5 MG Albuterol 2.5 mg Q8HR NEB 12/08/24 06:00 12/10/24 06:16 2.5 MG Atorvastatin Calcium 80 mg HS PO 12/08/24 22:00 12/09/24 22:04 80 MG Amlodipine Besylate 5 mg DAILY PO 12/08/24 10:00 12/09/24 08:49 5 MG Clopidogrel Bisulfate 75 mg DAILY PO 12/08/24 10:00 12/09/24 08:48 75 MG Tamsulosin HCl 0.4 mg QPM PO 12/08/24 18:00 12/09/24 17:21 0.4 MG Losartan Potassium 50 mg DAILY PO 12/09/24 10:00 12/09/24 08:49 50 MG Iron Sucrose 110 ml @ 110 mls/hr DAILY@1200 IV 12/09/24 12:00 12/13/24 12:59 12/09/24 11:58 110 MLS/HR Acetaminophen/ Hydrocodone Bitart 1 tab Q6HPRN PRN PO 12/09/24 11:45 12/09/24 11:58 1 TAB Hydralazine HCl 10 mg Q6HP PRN IV 12/09/24 11:45 Laboratory: Laboratory Tests Test 12/09/24 05:40 12/09/24 10:53 12/10/24 05:00 12/10/24 05:22 Range/Units White Blood Count 8.3 8.3 4.4-10.8 10^3/uL Red Blood Count 3.58 L 3.62 L 4.5-5.90 10^6/uL Hemoglobin 8.6 L 8.8 L 13.5-17.5 g/dL Hematocrit 27.7 L 27.8 L 41.0-53.0 % Mean Corpuscular Volume 77.3 L 76.8 L 80.0-100.0 fL Mean Corpuscular Hemoglobin 24.0 L 24.4 L 28.0-32.0 pg Mean Corpuscular Hemoglobin Concent 31.0 L 31.8 L 32.0-36.0 g/dL Red Cell Distribution Width 18.2 H 18.7 H 11.8-14.3 % Platelet Count 136 L 125 L 140-450 10^3/uL Mean Platelet Volume 11.6 H 10.8 6.9-10.8 fL Neutrophils (%) (Auto) 72.1 67.1 37.0-80.0 % Lymphocytes (%) (Auto) 16.8 16.5 10.0-50.0 % Monocytes (%) (Auto) 7.9 10.2 0.0-12.0 % Eosinophils (%) (Auto) 2.1 4.8 0.0-7.0 % Basophils (%) (Auto) 1.1 1.4 0.0-2.0 % Neutrophils # (Auto) 6.0 5.6 1.6-8.6 10 ^3/uL Lymphocytes # (Auto) 1.4 1.4 0.4-5.4 10 ^3/uL Monocytes # (Auto) 0.7 0.8 0-1.3 10 ^3/uL Eosinophils # (Auto) 0.2 0.4 0-0.8 10 ^3/uL Basophils # (Auto) 0.1 0.1 0-0.2 10 ^3/uL Nucleated Red Blood Cells 0.0 0.1 % Sodium Level 142 137 # 142 # 136-145 mmol/L Potassium Level 3.9 3.5 3.4 L 3.5-5.1 mmol/L Chloride Level 108 H 104 104 98-107 mmol/L Carbon Dioxide Level 28 28 29 20-31 mmol/L Anion Gap 6 5 9 5-15 Blood Urea Nitrogen 16 19 18 9-23 mg/dL Creatinine 1.00 1.17 1.08 0.700-1.30 mg/dL Glomerular Filtration Rate Calc 77 64 70 >90 mL/min BUN/Creatinine Ratio 16.0 16.2 16.7 10.0-20.0 Serum Glucose 106 184 H 111 H 74-106 mg/dL Calcium Level 9.1 8.9 9.4 8.7-10.4 mg/dL Ferritin 11.6 L 22-322 ng/mL Vitamin B12 Level 177 L 211-911 pg/mL Folic Acid 15.75 >5.38 ng/mL Stool Occult Blood Sample #3 Negative Negative Chest X-ray: bibasilar infiltrates Others: Echo d/w [employer] Agent- Dr Wooten. Echo - severe aortic stenosis. given the ongoing chest pain, and severe and ongoing lung infection and upon discussion with the GI/Cardiology/Resident Patient can be optimised better with working up coronary ischemia, treating chest infection and treating CHF and consulting with us after that. Allergies/Reactions: None Allergies: Coded Allergies: NO KNOWN ALLERGIES (Unverified , 12/07/24) Family Anesthetic History: None General Condition & Infection: Morbid Obesity, Preexisting Infection Head and Neck: No Change Pulmonary: COPD with exacerbation, Pneumonia, Respiratory Failure Cardiovasular: Cardiac valve d/o, Angina pectoris Hematology: Anemia:describe etiology Anesthesia Risks: Risk and Benefits discussed with patients. Patient understands and agrees with the plan. Anesthesia Plan: Mac ASA CLASS: 4 Reason: cancel procedure for today, suggest better optimisation before proceeding in a few weeks time. Mallampati Class: 2 Post-Anesthetic Evaluation Date/Time DATE: 12/10/24 TIME: 12:10 PACU Vital Signs Vital Signs Date Time Temp Pulse Resp B/P (MAP) Pulse Ox O2 Delivery O2 Flow Rate FiO2 12/10/24 10:00 91 Nasal Cannula 2.0 12/10/24 10:00 28 12/10/24 09:00 97.8 75 16 171/53 (92) 97.8 ZIA MILTON MD Dec 10, 2024 12:23
--- NOTE | 2024-12-10 13:08 | DVHPN2 ---
Progress Note - Dictate Date Seen: Dec 10, 2024 Medical Necessity Reason Pt with a Central, PICC or Fol: No Subjective Patient was brought down to GI lab for endoscopic procedures However after reviewing the patient's history and the echo report the anesthesiologist felt the patient was to high-risk for the procedures Anesthesiologist discussed with the box cutter and the patient needs to be optimized prior to procedures Echo : Moderate aortic stenosis EF 50 -55 % No active GI bleeding reported Hb stable 8.8 vital signs Vital Sign Date Time Temp Pulse Resp B/P (MAP) Pulse Ox O2 Delivery O2 Flow Rate FiO2 12/10/24 12:55 185/53 12/10/24 10:00 91 Nasal Cannula 2.0 12/10/24 10:00 28 12/10/24 09:00 97.8 75 16 97.8 Total Intake and Output 12/09/24 12/09/24 12/10/24 15:00 23:00 07:00 Intake Total 500 ml 200 ml Output Total 200 ml 500 ml Balance 300 ml -300 ml medications Current Medications Medications Dose Ordered Sig/Brandy Route Start Time Stop Time Status Last Admin Dose Admin Nitroglycerin 0.4 mg Q5MINP PRN SL 12/08/24 00:00 Pantoprazole Sodium 40 mg DAILY IV 12/08/24 10:00 12/10/24 12:54 40 MG Ceftriaxone Sodium 50 ml @ 100 mls/hr DAILY@2100 IV 12/08/24 21:00 12/09/24 22:04 100 MLS/HR Azithromycin 500 mg DAILY@2100 PO 12/08/24 21:00 12/09/24 22:03 500 MG Ipratropium [place] 0.5 mg Q8HR NEB 12/08/24 06:00 12/10/24 06:16 0.5 MG Albuterol 2.5 mg Q8HR NEB 12/08/24 06:00 12/10/24 06:16 2.5 MG Atorvastatin Calcium 80 mg HS PO 12/08/24 22:00 12/09/24 22:04 80 MG Amlodipine Besylate 5 mg DAILY PO 12/08/24 10:00 12/10/24 12:54 5 MG Clopidogrel Bisulfate 75 mg DAILY PO 12/08/24 10:00 12/10/24 12:54 75 MG Tamsulosin HCl 0.4 mg QPM PO 12/08/24 18:00 12/09/24 17:21 0.4 MG Losartan Potassium 50 mg DAILY PO 12/09/24 10:00 12/10/24 12:55 50 MG Iron Sucrose 110 ml @ 110 mls/hr DAILY@1200 IV 12/09/24 12:00 12/13/24 12:59 12/10/24 12:55 110 MLS/HR Acetaminophen/ Hydrocodone Bitart 1 tab Q6HPRN PRN PO 12/09/24 11:45 12/09/24 11:58 1 TAB Hydralazine HCl 10 mg Q6HP PRN IV 12/09/24 11:45 objective General Appearance: Alert, Oriented X3, Cooperative, No acute distress HEENT: Atraumatic, PERRLA, EOMI Respiratory: Other (Trace crackles, decreased bilateral breath sounds) Cardiovascular: Regular rate, Normal S1, Normal S2 Abdominal: Normal bowel sounds, Soft, No tenderness Extremities: Other (Decreased pedal pulse on the right, +1 lower extremity edema) Skin: No rashes, No significant lesion Neuro: Normal speech, Sensation intact Psych/Mental Status: Mental status NL, Mood NL laboratory and microbiology Laboratory Tests 12/10/24 05:22 Test 12/10/24 05:22 Range/Units Serum Glucose 111 H 74-106 mg/dL Problems(with codes): (1) Microcytic anemia (2) Pneumonia (3) Acute systolic (congestive) heart failure (4) COPD exacerbation (5) Shortness of breath Prognosis Plan Endoscopic procedures were canceled as per anesthesia doctor recommendations and the nurses not being comfortable doing this under conscious sedation at this time because of anesthesia concerns Discussion was done with the box cutter who also feels patient is not optimized at this time for the procedures We will resume 2 g sodium diet Patient will go undergo full cardiology evaluation and optimization over next couple of weeks Possible rescheduling of the endoscopy and colonoscopy as an outpatient Plan discussed with: Patient, Other (Dr Alberto) CLIFF DO MD Dec 10, 2024 13:08
--- NOTE | 2024-12-10 14:57 | DVH ---
Procedure: CT CHEST WITHOUT CONTRAST Reason for study/Clinical History: hypoxia continues Comparison Study: None available at time of dictation. Exam Date: 12/10/2024 02:36 PM TECHNIQUE: Multidetector CT of the chest was performed from the lung apices to the upper abdomen with out the use of intravenous contract. Axial, coronal and sagittal multiplanar reformats were performed . Radiation Dose Information: CT Dose: CTDI volume is 12.15 mGy. Dose-length product is 423.75 mGy*cm The dose indicators for CT are the volume Computed Tomography (CT) Dose Index (CTDIvol) and the Dose Length Product (DLP), and are measured in units of mGy and mGy-cm, respectively. These indicators are not patient dose, but values generated from the CT scanner acquisition factors. The report includes radiation exposure data for exposures received during this examination. FINDINGS: Lower neck: Normal thyroid. Lungs: No focal consolidation, pleural effusion or pneumothorax. Heart/Vascular Structures: Normal heart size. No pericardial effusion. Lymph Nodes: No adenopathy Pleura: Trace bilateral pleural effusions. No significant pneumothorax. Musculoskeletal: No acute osseous abnormality. Soft tissues: Normal. Upper abdomen: Limited portions of the upper abdomen are unremarkable. IMPRESSION: 1. No acute intrathoracic abnormality. Radiation optimization: All CT scans at this facility use at least one of these dose optimization david hniques: automated exposure control mA and/or kV adjustment per patient size (includes targeted exam s where dose is matched to clinical indication) or iterative reconstruction.
[2024-12-10] MEDS: DOXYCYCLINE 100MG/100ML 100 ML IV ONE (15:12)
[2024-12-10] MEDS: hydrALAZINE HCL 20 MG/ML VL IV PRN (15:12)
[2024-12-10] MEDS: MORPHINE SULFATE INJ 2 MG/ml SYRG IV ONE (16:09)
--- NOTE | 2024-12-10 16:49 | DVHPNRES ---
Progress Note Date Seen: Dec 10, 2024 Resident Creating Document: DENNIS RODRIGUEZ RESIDENT Medical Necessity Reason Pt with a Central, PICC or Fol: No Subjective Review of Systems Patient is a 79-year-old male with past medical history of COPD, CHF, diabetes, rheumatoid arthritis, gastric ulcer, treated syphilis, hypertension, dyslipidemia, s/p aortic valve replacement, who came in due to shortness of breaths. According to the patient and son at bedside, for the last 4-5 days he has been experiencing shortness of breath and dyspnea that has progressively gotten worse. Patient also notes a chest pain ongoing for the same duration of time intermittent in nature, burning in character and 6/10 in intensity, patient believes pain was brought on by eating, walking worsens the pain rest relieves the pain, similar symptoms of chest pain before in the past. Patient was seen and examined on the bedside. He is alert oriented x3 and on 3 L oxygen through nasal canula. Complains of chest pain and no other active complaints. Objective vital signs Vital Sign Date Time Temp Pulse Resp B/P (MAP) Pulse Ox O2 Delivery O2 Flow Rate FiO2 12/10/24 16:09 78 20 147/43 12/10/24 14:30 96 12/10/24 13:00 98.0 98.0 12/10/24 10:00 Nasal Cannula 2.0 12/10/24 10:00 28 Total Intake and Output 12/09/24 12/09/24 12/10/24 15:00 23:00 07:00 Intake Total 500 ml 200 ml Output Total 200 ml 500 ml Balance 300 ml -300 ml medications Current Medications Medications Dose Ordered Sig/Brandy Route Start Time Stop Time Status Last Admin Dose Admin Nitroglycerin 0.4 mg Q5MINP PRN SL 12/08/24 00:00 Pantoprazole Sodium 40 mg DAILY IV 12/08/24 10:00 12/10/24 12:54 40 MG Ceftriaxone Sodium 50 ml @ 100 mls/hr DAILY@2100 IV 12/08/24 21:00 12/09/24 22:04 100 MLS/HR Ipratropium [place] 0.5 mg Q8HR NEB 12/08/24 06:00 12/10/24 14:56 0.5 MG Albuterol 2.5 mg Q8HR NEB 12/08/24 06:00 12/10/24 14:56 2.5 MG Atorvastatin Calcium 80 mg HS PO 12/08/24 22:00 12/09/24 22:04 80 MG Amlodipine Besylate 5 mg DAILY PO 12/08/24 10:00 12/10/24 12:54 5 MG Clopidogrel Bisulfate 75 mg DAILY PO 12/08/24 10:00 12/10/24 12:54 75 MG Tamsulosin HCl 0.4 mg QPM PO 12/08/24 18:00 12/09/24 17:21 0.4 MG Losartan Potassium 50 mg DAILY PO 12/09/24 10:00 12/10/24 12:55 50 MG Acetaminophen/ Hydrocodone Bitart 1 tab Q6HPRN PRN PO 12/09/24 11:45 12/09/24 11:58 1 TAB Hydralazine HCl 10 mg Q6HP PRN IV 12/09/24 11:45 12/10/24 15:12 10 MG Doxycycline Monohydrate 100 mg Q12HR PO 12/10/24 22:00 Examination Physical examination: General Appearance: Alert, Oriented X3, Cooperative, mild distress , 3L o2 through nasal canula HEENT: Atraumatic, PERRLA, EOMI, Mucous membrane moist/pink Respiratory: Decreased breath sound and bilateral basal crackles. Cardiovascular: Regular rate, Normal S1, Normal S2, No murmurs, no chest wall tenderness Abdominal: Normal bowel sounds, Soft, No tenderness, No hepatospenomegaly, No masses Extremities: No clubbing, No cyanosis, No edema, Normal pulses, No tenderness/swelling Skin: No rashes, No breakdown, No significant lesion Neuro: Use walker, Normal speech, Strength at 5/5 X4 ext, Normal tone, Sensation intact, grossly intact cranial nerves. Psych/Mental Status: Mental status NL, Mood NL laboratory and microbiology Laboratory Tests 12/10/24 05:22 Test 12/10/24 05:22 Range/Units Serum Glucose 111 H 74-106 mg/dL Labs and/or images reviewed: Labs reviewed by me, Image(s) reviewed by me Problem List/Assessment/Plan Problem List/Assessment/Plan Assessment and plan: # Acute On chronic hypoxic respiratory failure # Possible community-acquired pneumonia: Gram-positive versus Gram-negative # COPD exacerbation due to above - PSI score for CAP 118, risk class IV, 8.2-9.3% mortality. - CXR: Findings may represent congestive failure or pneumonia - Lower extremity venous Doppler: No deep venous thrombosis in the bilateral lower extremities - IV Rocephin i gm daily, doxycycline 100 mg po b.i.d, discontinue IV azithromycin - Duoneb with ipratropium and albuterol q.8 hours - CT chest without contrast revealed normal study with trace bilateral pleural effusion. - Ordered ABG on room air - PT evaluation # Acute on chronic diastolic heart failure # Peripheral vascular disease # Dyslipidemia # Hypertension - BNP 439; CXR: Bibasilar infiltrates - Echo on 12/08/24 revealed ejection fraction 55-60% , grade 2 diastolic dysfunction, and moderate aortic stenosis - Lower extremity arterial Doppler: There is peripheral vascular disease in the right lower extremity evidence thigh monophasic waveforms. No significant stenosis in the right lower extremity. There is 60-75% stenosis in the left common femoral artery. Peripheral vascular disease in the rest of the left lower extremity without high-grade stenosis or occlusion. Bilateral anterior tibial and peroneal arteries not visualized. - Resumed home medication atorvastatin 80 mg, Plavix 75 mg, amlodipine 5 mg # Possible chronic iron defieciency anemia - Elevated LDH 253 (120-246), mildly elevated reticulocyte count 1.68 (0.5-1.5) - Iron panel showed low iron, normal TIBC and low saturation - Ordered stool occult blood - IV Iron daily. - IV Protonix 40 mg daily. - GI recommended possible EGD and colonoscopy tomorrow after cardiac clearance. - GI postponed the procedure after reviewing the patient's history and the echo report the anesthesiologist felt the patient was to high-risk for the procedures Anesthesiologist discussed with the retaining room cutter and the patient needs to be optimized prior to procedures Echo : Moderate aortic stenosis # Vitamin B12 deficiency - Cyanocobalamin 1000 mcg IM once. # Type 2 diabetes, Hb A1c 6.2 - Mild sliding scale insulin # History of rheumatoid arthritis - monitor DVT prophylaxis: Hold due to the possibility of bleeding Code status: Full code. Plan discussed with Plan discussed with: Patient, Other My Orders My Orders Orders - DENNIS RODRIGUEZ Procedure Category Date Status Time Cardiac DIET 12/10/24 Transmitted Diet-2gna,Lofat,Lochol Lunch Mrsa Screen SEBASTIÁN 12/10/24 Uncollected 14:17 Pt Request For Service PT 12/10/24 Logged 14:26 Abg W/ Co-Ox RT 12/10/24 Logged 15:48 Date of Service: Dec 10, 2024 Billing Provider: FELIX CAR MD Common Visit Codes: [id number] INP/OBS CARE(HIGH) MARÍA RODRIGUEZHIRA RESIDENT Dec 10, 2024 16:49 FELIX CAR MD Dec 13, 2024 09:55
[2024-12-10 16:56] LABS: Base Excess -2.2 mmol/L (-2.0-3.0)
[2024-12-10] MEDS: DOXYCYCLINE 100 MG TAB/CAP PO SCH (21:07)
--- NOTE | 2024-12-10 23:17 | DVHINCON2 ---
Date of service: Dec 10, 2024 Referring Physician Cee Reason for Consultation Cardiac clearance History of Present Illness This is a 79 year old male with a PMH of CHF, HTN, and STEMI who presented to the ED on 12/07 with complaints of shortness of breath and dyspnea that has progressively gotten worse. Patient also notes a chest pain ongoing for the same duration of time intermittent in nature, burning in character and 6/10 in intensity, patient believes pain was brought on by eating, walking worsens the pain rest relieves the pain. Patient also notes having sick contacts; his son with flu-like symptoms and diarrhea.Patient endorses fatigue, sore throat, cough productive of beverly sputum, dyspnea, shortness of breath and dysuria. Chest x-ray was suggestive of congestive failure or pneumonia. Lower extremity venous Doppler: no deep venous thrombosis in the bilateral lower extremities. Patient was admitted to the hospital. I am asked to consult on this patient. Family History: FH: cancer G8 MOTHER Allergies: Coded Allergies: NO KNOWN ALLERGIES (Unverified , 12/07/24) Home Meds Reported Medications Memantine Hydrochloride (Memantine HCl) 10 Mg Tab, 1 TAB PO BID for 90 Days, #180 12/08/24 Tamsulosin Hcl (Tamsulosin Hcl) 0.4 Mg Cap, 0.4 MG PO QPM for 30 Days, MG 12/08/24 Potassium Chloride (POTASSIUM CHLORIDE CR) 10 Meq Tb, 10 MEQ PO, TAB 12/08/24 Pantoprazole Sodium Sesquihydr (Protonix) 40 Mg Tab, 40 MG PO DAILY, #30 TAB 12/08/24 Montelukast Sodium (MONTELUKAST SODIUM) 10 Mg Tab, 1 TAB PO DAILY for 90 Days, #90 12/08/24 Metoprolol Tartrate (Metoprolol Tartrate) 50 Mg Tab, 50 MG PO for 30 Days, MG 12/08/24 Metformin Hydrochloride (Metformin Hcl Er) 750 Mg Tab, 750 MG PO, TAB 12/08/24 Losartan Potassium (Cozaar) 100 Mg Tab, 1 TAB PO DAILY, #30 TAB 5 Refills 12/08/24 Gabapentin (Gabapentin) 300 Mg Cap, 300 MG PO, MG 12/08/24 Furosemide (Furosemide) 20 Mg Tab, 20 MG PO DAILY, MG 12/08/24 Donepezil Hydrochloride (DONEPEZIL HCL) 10 Mg Tab, 10 MG PO DAILYP, MG 12/08/24 Clopidogrel Bisulfate (CLOPIDOGREL) 75 Mg Tab, 75 MG PO DAILY, MG 12/08/24 Atorvastatin Calcium (ATORVASTATIN CALCIUM) 80 Mg Tab, 1 TAB PO DAILY, #30 TAB 5 Refills 12/08/24 Amlodipine Besylate (Amlodipine Besylate) 5 Mg Tab, 5 MG PO DAILY, MG 12/08/24 Current Medications Current Medications Medications (Trade) Dose Ordered Sig/Brandy Route PRN Reason Start Time Stop Time Status Last Admin Doxycycline Monohydrate (Vibramycin Tablet) 100 mg Q12HR PO 12/10/24 22:00 12/10/24 21:07 Review of Systems Constitutional: Yes: Malaise; No: Fever, Chills, Sweats, Weakness, Other Eyes: No: Pain, Vision change, Conjunctivae inflammation, Eyelid inflammation, Other, Redness ENT: Nose discharge, Nose congestion, Throat pain; No: Ear pain, Ear discharge, Nose pain, Mouth pain, Mouth swelling, Throat swelling, Other Respiratory: Cough, Shortness of breath, SOB with excertion; No: Dry, Wheezing, Hemoptysis, Pleuritic Pain, Sputum, Wheezing, Other Cardiovascular: Chest Pain; No: Palpitations, Orthopnea, Paroxysmal Noc. Dyspnea, Edema, Lt Headedness, Other Gastrointestinal: No: Nausea, Vomiting, Abdominal Pain, Diarrhea, Constipation, Melena, Hematochezia, Other Genitourinary: Dysuria; No Frequency, No Incontinence, No Hematuria, No Retention, No Other Musculoskeletal: leg pain; No: other, neck pain, shoulder pain, arm pain, back pain, hand pain, foot pain Skin: No: Rash, Lesions, Jaundice, Bruising, Other Neurological: No: Weakness, Numbness, Incoordination, Change in speech, Confusion, Seizures, Other Vital Signs Vital Signs Date Time Temp Pulse Resp B/P (MAP) Pulse Ox O2 Delivery O2 Flow Rate FiO2 12/10/24 19:52 91 Nasal Cannula* 2 28 12/10/24 17:00 98.5 77 18 141/41 (74) 98.5 Physical Exam GENERAL: Awake, alert, oriented. LUNGS: Decreased breath sound and bilateral basal crackles. CARDIOVASCULAR: Heart sounds are good. ABDOMEN: Soft. Labs/Diagnostic Data Labs Test 12/10/24 20:26 12/10/24 16:48 12/10/24 05:22 12/10/24 05:00 Range/Units Blood Gas Specimen Type Arterial Blood Gas Sample Site Right radial Blood Gas Patient Temperature 37.0 Arterial Blood Date Drawn [id number] Arterial Blood pH 7.520 H 7.350-7.450 Arterial Blood Partial Pressure CO2 25.0 L 35.0-48.0 mmHg Arterial Blood Partial Pressure O2 60.7 L 83.0-108.0 mmHg Arterial Blood HCO3 20.0 L 21.0-28.0 mmol/L Arterial Blood Oxygen Saturation 91.3 L 94.0-98.0 % Arterial Blood Base Excess -2.2 L -2.0-3.0 mmol/L Arterial Blood Oxyhemoglobin 90.0 L 94.0-98.0 % Arterial Blood Carboxyhemoglobin 0.7 0.5-1.5 % Arterial Blood Methemoglobin 0.7 0.0-1.5 % Cj Test Yes Blood Gas Total Hemoglobin 8.20 L 13.5-17.5 g/dL Blood Gas Liter Flow 0.00 Blood Gas Modality Room air FiO2 % 21.0 White Blood Count 8.3 4.4-10.8 10^3/uL Red Blood Count 3.62 L 4.5-5.90 10^6/uL Hemoglobin 8.8 L 13.5-17.5 g/dL Hematocrit 27.8 L 41.0-53.0 % Mean Corpuscular Volume 76.8 L 80.0-100.0 fL Mean Corpuscular Hemoglobin 24.4 L 28.0-32.0 pg Mean Corpuscular Hemoglobin Concent 31.8 L 32.0-36.0 g/dL Red Cell Distribution Width 18.7 H 11.8-14.3 % Platelet Count 125 L 140-450 10^3/uL Mean Platelet Volume 10.8 6.9-10.8 fL Neutrophils (%) (Auto) 67.1 37.0-80.0 % Lymphocytes (%) (Auto) 16.5 10.0-50.0 % Monocytes (%) (Auto) 10.2 0.0-12.0 % Eosinophils (%) (Auto) 4.8 0.0-7.0 % Basophils (%) (Auto) 1.4 0.0-2.0 % Neutrophils # (Auto) 5.6 1.6-8.6 10 ^3/uL Lymphocytes # (Auto) 1.4 0.4-5.4 10 ^3/uL Monocytes # (Auto) 0.8 0-1.3 10 ^3/uL Eosinophils # (Auto) 0.4 0-0.8 10 ^3/uL Basophils # (Auto) 0.1 0-0.2 10 ^3/uL Nucleated Red Blood Cells 0.1 % Sodium Level 142 # 136-145 mmol/L Potassium Level 3.4 L 3.5-5.1 mmol/L Chloride Level 104 98-107 mmol/L Carbon Dioxide Level 29 20-31 mmol/L Anion Gap 9 5-15 Blood Urea Nitrogen 18 9-23 mg/dL Creatinine 1.08 0.700-1.30 mg/dL Glomerular Filtration Rate Calc 70 >90 mL/min BUN/Creatinine Ratio 16.7 10.0-20.0 Serum Glucose 111 H 74-106 mg/dL Calcium Level 9.4 8.7-10.4 mg/dL Stool Occult Blood Sample #3 Negative Negative Test 12/09/24 05:40 12/08/24 06:14 12/08/24 05:25 12/08/24 01:23 Range/Units Ferritin 11.6 L 22-322 ng/mL Vitamin B12 Level 177 L 211-911 pg/mL Folic Acid 15.75 >5.38 ng/mL POC Glucose 130 H 70-106 mg/dl Total Bilirubin 0.6 0.2-1.0 mg/dL Aspartate Amino Transferase (AST) 11 L 13-40 U/L Alanine Aminotransferase (ALT) < 9 7-40 U/L Alkaline Phosphatase 139 H 46-116 U/L Total Protein 6.9 5.7-8.2 g/dL Albumin 4.1 3.2-4.8 g/dL Hepatitis B Surface Antigen Negative Negative Hepatitis C Antibody Negative Negative Erythrocyte Sedimentation Rate 34 H 0-20 mm/hr Reticulocyte Count (auto) 1.68 H 0.5-1.5 % Prothrombin Time 12.4 H 9.3-11.8 sec Prothrombin Time INR 1.19 H 0.9-1.15 D-Dimer, Quantitative 0.72 H 0.0-0.49 mg/L FEU Hemoglobin A1c 6.2 H <5.7 % A1C Magnesium Level 1.9 1.6-2.6 mg/dL Iron Level 23 L 65-175 ug/dL Total Iron Binding Capacity 367 250-425 ug/dL Percent Iron Saturation 6.3 L 20-55 % Lactate Dehydrogenase 253 H 120-246 U/L C-Reactive Protein High Sensitivity 0.63 <1.0 mg/dL Thyroid Stimulating Hormone (TSH) 2.44 0.55-4.78 uIU/mL Test 12/07/24 23:30 12/07/24 23:25 12/07/24 21:38 Range/Units Urine Color Light-yellow Yellow Urine Clarity Clear Clear Urine pH 6.0 5.0-9.0 Urine Specific [place] 1.010 1.001-1.035 Urine Protein Trace H Negative Urine Ketones Negative Negative Urine Blood Negative Negative /uL Urine Nitrite Negative Negative Urine Bilirubin Negative Negative Urine Urobilinogen Normal Negative mg/dL Urine Leukocyte Esterase Negative Negative /uL Urine RBC 3 0 - 3 /hpf Urine Microscopic WBC 3 0-3 /HPF Urine Squamous Epithelial Cells None seen <5 /hpf Urine Bacteria None seen None Seen /hpf Urine Glucose Normal Normal mg/dL Influenza Type A Antigen Negative Negative Influenza Type B Antigen Negative Negative SARS-CoV-2 Antigen (Rapid) Negative NEGATIVE B-Type Natriuretic Peptide 439.15 0-100 pg/mL Assessment Acute on chronic hypoxic respiratory failure. Community-acquired pneumonia. COPD exacerbation. Acute on chronic diastolic heart failure. Peripheral vascular disease. Dyslipidemia. Hypertension. Vitamin B12 deficiency. Type 2 diabetes. History of rheumatoid arthritis. Plan/Recommendation I agree with your ongoing assessment and care of plan. Telemetry reviewed. Echocardiogram. [place] for pain management. Amlodipine, Losartan. Lipitor, Plavix. Antibiotics as ordered. GI prophylactics. IV Hydralazine for a SBP >150. Additional plan as per the hospital course. A total of 45 minutes was spent reviewing the patient record, examining the patient, making a diagnostic and therapeutic plan, discussing this plan with medical personnel, following up on diagnostic studies and following the patient for clinical stability excluding any and all procedures. At least 50% of this time was spent in direct, [id number] contact. Plan discussed with: Patient CHAPINCITO ANDERSEN MD Dec 10, 2024 21:28
[2024-12-11] VITALS (18 sets, daily range): BP systolic 131–149; BP diastolic 39–56; PULSE 65–97; RESP 16–20; TEMP 97.5–98.5; O2SAT 67–100
[2024-12-11 06:22] LABS: Basophils # (auto) 0.1 10 ^3/uL (0-0.2); Eosinophils # (auto) 0.3 10 ^3/uL (0-0.8); Eosinophils % (auto) 3.4 % (0.0-7.0); Hemoglobin 8.6 g/dL (13.5-17.5); Lymphocytes # (auto) 1.2 10 ^3/uL (0.4-5.4); Mean Corpuscular Hemoglobin 24.3 pg (28.0-32.0); Mean Corpuscular Hgb Conc. 31.2 g/dL (32.0-36.0); Mean Corpuscular Volume 77.8 fL (80.0-100.0); Monocytes # (auto) 0.8 10 ^3/uL (0-1.3)
[2024-12-11 06:26] LABS: Hematocrit 27.6 % (41.0-53.0); Lymphocytes % (auto) 14.1 % (10.0-50.0); Monocytes % (auto) 9.3 % (0.0-12.0); Neutrophils % (auto) 72.2 % (37.0-80.0); Platelet Count (auto) 118 10^3/uL (140-450); Red Blood Cells 3.55 10^6/uL (4.5-5.90); Red Cell Distribution Width 18.6 % (11.8-14.3); White Blood Cell 8.4 10^3/uL (4.4-10.8)
[2024-12-11 06:38] LABS: Anion Gap 8 (5-15); Carbon Dioxide 23 mmol/L (20-31); Potassium 3.9 mmol/L (3.5-5.1); Sodium 141 mmol/L (136-145)
[2024-12-11 06:39] LABS: Calcium 9.3 mg/dL (8.7-10.4)
[2024-12-11 06:44] LABS: BUN/Creatinine Ratio 14.7 (10.0-20.0); Blood Urea Nitrogen 15 mg/dL (9-23)
[2024-12-11 06:45] LABS: Chloride 110 mmol/L (98-107); Glucose 116 mg/dL (74-106)
--- NOTE | 2024-12-11 10:36 | DVHPNRES ---
Progress Note Date Seen: Dec 11, 2024 Resident Creating Document: DENNIS RODRIGUEZ RESIDENT Medical Necessity Reason Pt with a Central, PICC or Fol: No Subjective Review of Systems Patient is a 79-year-old male with past medical history of COPD, CHF, diabetes, rheumatoid arthritis, gastric ulcer, treated syphilis, hypertension, dyslipidemia, s/p aortic valve replacement, who came in due to shortness of breaths. According to the patient and son at bedside, for the last 4-5 days he has been experiencing shortness of breath and dyspnea that has progressively gotten worse. Patient also notes a chest pain ongoing for the same duration of time intermittent in nature, burning in character and 6/10 in intensity, patient believes pain was brought on by eating, walking worsens the pain rest relieves the pain, similar symptoms of chest pain before in the past. ABG on room air was not consistent with requirement of home oxygen. PT evaluated the patient and recommended to SNF for rehabilitation and social local was consulted to arrange SNF for PT. Patient's oxygen requirement was titrated down to room air and the patient is saturating normally at 95% on room air. Patient was seen and examined on the bedside. He is alert oriented x3 and on room air with saturation 93% . Complains of generalized weakness, mild chest discomfort and no other active complaints. Objective vital signs Vital Sign Date Time Temp Pulse Resp B/P (MAP) Pulse Ox O2 Delivery O2 Flow Rate FiO2 12/11/24 09:36 132/45 12/11/24 09:00 97.8 91 18 92 97.8 12/11/24 06:51 Nasal Cannula* 2 28 Total Intake and Output 12/10/24 12/10/24 12/11/24 15:00 23:00 07:00 Intake Total 400 ml 50 ml 500 ml Output Total 200 ml 400 ml Balance 400 ml -150 ml 100 ml medications Current Medications Medications Dose Ordered Sig/Brandy Route Start Time Stop Time Status Last Admin Dose Admin Nitroglycerin 0.4 mg Q5MINP PRN SL 12/08/24 00:00 Pantoprazole Sodium 40 mg DAILY IV 12/08/24 10:00 12/11/24 09:35 40 MG Ceftriaxone Sodium 50 ml @ 100 mls/hr DAILY@2100 IV 12/08/24 21:00 12/10/24 21:06 100 MLS/HR Ipratropium [place] 0.5 mg Q8HR NEB 12/08/24 06:00 12/11/24 06:51 0.5 MG Albuterol 2.5 mg Q8HR NEB 12/08/24 06:00 12/11/24 06:51 2.5 MG Atorvastatin Calcium 80 mg HS PO 12/08/24 22:00 12/10/24 21:07 80 MG Amlodipine Besylate 5 mg DAILY PO 12/08/24 10:00 12/11/24 09:36 5 MG Clopidogrel Bisulfate 75 mg DAILY PO 12/08/24 10:00 12/11/24 09:35 75 MG Tamsulosin HCl 0.4 mg QPM PO 12/08/24 18:00 12/10/24 18:05 0.4 MG Losartan Potassium 50 mg DAILY PO 12/09/24 10:00 12/11/24 09:36 50 MG Acetaminophen/ Hydrocodone Bitart 1 tab Q6HPRN PRN PO 12/09/24 11:45 12/09/24 11:58 1 TAB Hydralazine HCl 10 mg Q6HP PRN IV 12/09/24 11:45 12/10/24 15:12 10 MG Doxycycline Monohydrate 100 mg Q12HR PO 12/10/24 22:00 12/11/24 09:35 100 MG Examination Physical examination: General Appearance: Alert, Oriented X3, Cooperative, mild distress , 3L o2 through nasal canula HEENT: Atraumatic, PERRLA, EOMI, Mucous membrane moist/pink Respiratory: Decreased breath sound and bilateral fine basal crackles. Cardiovascular: Regular rate, Normal S1, Normal S2, No murmurs, no chest wall tenderness Abdominal: Normal bowel sounds, Soft, No tenderness, No hepatospenomegaly, No masses Extremities: No clubbing, No cyanosis, No edema, Normal pulses, No tenderness/swelling Skin: No rashes, No breakdown, No significant lesion Neuro: Use walker, Normal speech, Strength at 5/5 X4 ext, Normal tone, Sensation intact, grossly intact cranial nerves. Psych/Mental Status: Mental status NL, Mood NL laboratory and microbiology Laboratory Tests 12/11/24 05:11 Test 12/11/24 05:11 Range/Units Serum Glucose 116 H 74-106 mg/dL Labs and/or images reviewed: Labs reviewed by me, Image(s) reviewed by me Problem List/Assessment/Plan Problem List/Assessment/Plan Assessment and plan: # Acute on chronic hypoxic respiratory failure # Possible community-acquired pneumonia: Gram-positive versus Gram-negative # COPD exacerbation due to above - PSI score for CAP 118, risk class IV, 8.2-9.3% mortality. - CXR: Findings may represent congestive failure or pneumonia - Lower extremity venous Doppler: No deep venous thrombosis in the bilateral lower extremities - IV Rocephin 1 gm daily, doxycycline 100 mg po b.i.d, discontinue IV azithromycin - DuoNeb with ipratropium and albuterol q.8 hours - CT chest without contrast revealed normal study with trace bilateral pleural effusion. - ABGs on room air was not consistent with requirement of home oxygen. - PT recommended SNF for rehab. # Acute on chronic diastolic heart failure # Peripheral vascular disease # Dyslipidemia # Hypertension - BNP 439; CXR: Bibasilar infiltrates - Echo on 12/08/24 revealed ejection fraction 55-60% , grade 2 diastolic dysfunction, and moderate aortic stenosis - Lower extremity arterial Doppler: There is peripheral vascular disease in the right lower extremity evidence thigh monophasic waveforms. No significant stenosis in the right lower extremity. There is 60-75% stenosis in the left common femoral artery. Peripheral vascular disease in the rest of the left lower extremity without high-grade stenosis or occlusion. Bilateral anterior tibial and peroneal arteries not visualized. - Resumed home medication atorvastatin 80 mg, Plavix 75 mg, amlodipine 5 mg # Possible chronic iron deficiency anemia - Elevated LDH 253 (120-246), mildly elevated reticulocyte count 1.68 (0.5-1.5) - Iron panel showed low iron, normal TIBC and low saturation - Ordered stool occult blood - IV Iron daily. - IV Protonix 40 mg daily. - GI postponed the EGD and colonoscopy procedure after reviewing the patient's history and the echo report the anesthesiologist felt the patient was to high- risk for the procedures Anesthesiologist discussed with the dielectric embossing machine operator and the patient needs to be optimized prior to procedures Echo : Moderate aortic stenosis # Vitamin B12 deficiency - Cyanocobalamin 1000 mcg IM once. # Type 2 diabetes, Hb A1c 6.2 % - Mild sliding scale insulin # History of rheumatoid arthritis - monitor DVT prophylaxis: Hold due to the possibility of bleeding Code status: Full code. Discussed for 20 minutes Plan discussed with Dr. Flores Plan discussed with: Patient, Other (RN) My Orders My Orders Orders - DENNIS RODRIGUEZ Procedure Category Date Status Time Cardiac DIET 12/10/24 Transmitted Diet-2gna,Lofat,Lochol Lunch Mrsa Screen [place] 12/10/24 In Process 18:07 Pt Request For Service PT 12/10/24 Logged 14:26 Abg W/ Co-Ox RT 12/10/24 Logged 15:48 Addendum Addendum Addendum I was physically present for the west portions of the service provided to patient by THE RESIDENT. I have reviewed the documentation, discussed the case with resident and agree with the resident's documentation except as noted. Also the patient's clinical case was discussed with the patient's nurse. This medical document was created using an electronic medical record system with computerized dictation system. Although this document has been carefully reviewed, there might still be some phonetic and typographical errors. These areas are purely typographical due to imperfections of the software programs, and do not reflect any compromise in the patient's medical care. Late signature. Date of Service: Dec 11, 2024 Billing Provider: LUCAS FLORES MD Common Visit Codes: 86915-[id number] INP/OBS CARE(HIGH) Secondary Visit Codes: 10553-[id number] CARE PLAN 30 MINUTES (20 minutes) DENNIS RODRIGUEZ Dec 11, 2024 10:36 LUCAS FLORES MD Dec 12, 2024 18:53
--- NOTE | 2024-12-11 13:52 | DVHPN2 ---
Progress Note - Dictate Date Seen: Dec 11, 2024 Medical Necessity Reason Pt with a Central, PICC or Fol: No Subjective Patient was seen and evaluated in follow up. Patient is complaining o chest discomfort. Echocardiogram shows calcified aortic valve with [id number] stenosis. Normal left ventricular size and systolic function. Grade II diastolic dysfunction with evidence of elevated left-sided filling pressure. Normal right ventricular size and systolic function. Mildly dilated left atrial chamber size. PA systolic pressure is estimated at 30-35 mm Hg. HGB 8.6, HCT 27.6. GI postponed EGD and colonoscopy after reviewing the patient's history and the echocardiogram. The anesthesiologist felt the patient was to high-risk for the procedures. The patient needs to be optimized prior to procedures. Telemetry reviewed. vital signs Vital Sign Date Time Temp Pulse Resp B/P (MAP) Pulse Ox O2 Delivery O2 Flow Rate FiO2 12/11/24 09:36 132/45 12/11/24 09:00 97.8 91 18 92 97.8 12/11/24 08:25 Nasal Cannula* 2 28 Total Intake and Output 12/10/24 12/10/24 12/11/24 14:59 22:59 06:59 Intake Total 400 ml 50 ml 500 ml Output Total 200 ml 400 ml Balance 400 ml -150 ml 100 ml medications Current Medications Medications Dose Ordered Sig/Brandy Route Start Time Stop Time Status Last Admin Dose Admin Nitroglycerin 0.4 mg Q5MINP PRN SL 12/08/24 00:00 Pantoprazole Sodium 40 mg DAILY IV 12/08/24 10:00 12/11/24 09:35 40 MG Ceftriaxone Sodium 50 ml @ 100 mls/hr DAILY@2100 IV 12/08/24 21:00 12/10/24 21:06 100 MLS/HR Ipratropium [place] 0.5 mg Q8HR NEB 12/08/24 06:00 12/11/24 06:51 0.5 MG Albuterol 2.5 mg Q8HR NEB 12/08/24 06:00 12/11/24 06:51 2.5 MG Atorvastatin Calcium 80 mg HS PO 12/08/24 22:00 12/10/24 21:07 80 MG Amlodipine Besylate 5 mg DAILY PO 12/08/24 10:00 12/11/24 09:36 5 MG Clopidogrel Bisulfate 75 mg DAILY PO 12/08/24 10:00 12/11/24 09:35 75 MG Tamsulosin HCl 0.4 mg QPM PO 12/08/24 18:00 12/10/24 18:05 0.4 MG Losartan Potassium 50 mg DAILY PO 12/09/24 10:00 12/11/24 09:36 50 MG Acetaminophen/ Hydrocodone Bitart 1 tab Q6HPRN PRN PO 12/09/24 11:45 12/09/24 11:58 1 TAB Hydralazine HCl 10 mg Q6HP PRN IV 12/09/24 11:45 12/10/24 15:12 10 MG Doxycycline Monohydrate 100 mg Q12HR PO 12/10/24 22:00 12/11/24 09:35 100 MG objective GENERAL: Awake, alert, oriented. LUNGS: Decreased breath sound and bilateral basal crackles. CARDIOVASCULAR: Heart sounds are good. ABDOMEN: Soft. laboratory and microbiology Laboratory Tests 12/11/24 05:11 Test 12/11/24 05:11 Range/Units Serum Glucose 116 H 74-106 mg/dL Problem List Acute on chronic hypoxic respiratory failure. Community-acquired pneumonia. COPD exacerbation. Acute on chronic diastolic heart failure. Peripheral vascular disease. Dyslipidemia. Hypertension. Vitamin B12 deficiency. Type 2 diabetes. History of rheumatoid arthritis. Assessment/Plan Continued all current supportive medical care. [place] for pain management. Amlodipine, Losartan. Lipitor, Plavix. Antibiotics as ordered. GI prophylactics. IV Hydralazine for a SBP >150. Additional plan as per the hospital course. Plan discussed with: Patient CHAPINCITO ANDERSEN MD Dec 11, 2024 12:09
[2024-12-12] VITALS (14 sets, daily range): BP systolic 139–157; BP diastolic 46–69; PULSE 62–74; RESP 14–19; TEMP 97.6–98.8; O2SAT 93–100
--- NOTE | 2024-12-12 12:46 | DVHDSRES ---
Discharge Summary Date of Admission Resident Creating Document: SHAMAR WATT RESIDENT Dec 07, 2024 at 23:46 Date of Discharge: Dec 12, 2024 Admitting Diagnosis Shortness of breath Wounds: No wounds present at this time. Labs/Diagnostic Data: Laboratory Results Test 12/11/24 05:11 12/10/24 20:26 12/10/24 16:48 12/10/24 05:00 White Blood Count 8.4 10^3/uL (4.4-10.8) Red Blood Count 3.55 10^6/uL (4.5-5.90) Hemoglobin 8.6 g/dL (13.5-17.5) Hematocrit 27.6 % (41.0-53.0) Mean Corpuscular Volume 77.8 fL (80.0-100.0) Mean Corpuscular Hemoglobin 24.3 pg (28.0-32.0) Mean Corpuscular Hemoglobin Concent 31.2 g/dL (32.0-36.0) Red Cell Distribution Width 18.6 % (11.8-14.3) Platelet Count 118 10^3/uL (140-450) Mean Platelet Volume 10.9 fL (6.9-10.8) Neutrophils (%) (Auto) 72.2 % (37.0-80.0) Lymphocytes (%) (Auto) 14.1 % (10.0-50.0) Monocytes (%) (Auto) 9.3 % (0.0-12.0) Eosinophils (%) (Auto) 3.4 % (0.0-7.0) Basophils (%) (Auto) 1.0 % (0.0-2.0) Neutrophils # (Auto) 6.0 10 ^3/uL (1.6-8.6) Lymphocytes # (Auto) 1.2 10 ^3/uL (0.4-5.4) Monocytes # (Auto) 0.8 10 ^3/uL (0-1.3) Eosinophils # (Auto) 0.3 10 ^3/uL (0-0.8) Basophils # (Auto) 0.1 10 ^3/uL (0-0.2) Nucleated Red Blood Cells 0.0 % Sodium Level 141 mmol/L (136-145) Potassium Level 3.9 mmol/L (3.5-5.1) Chloride Level 110 mmol/L (98-107) Carbon Dioxide Level 23 mmol/L (20-31) Anion Gap 8 (5-15) Blood Urea Nitrogen 15 mg/dL (9-23) Creatinine 1.02 mg/dL (0.700-1.30) Glomerular Filtration Rate Calc 75 mL/min (>90) BUN/Creatinine Ratio 14.7 (10.0-20.0) Serum Glucose 116 mg/dL (74-106) Calcium Level 9.3 mg/dL (8.7-10.4) Troponin I High Sensitivity 33 ng/L (</=54) Blood Gas Specimen Type Arterial Blood Gas Sample Site Right radial Blood Gas Patient Temperature 37.0 Arterial Blood Date Drawn [id number] Arterial Blood pH 7.520 (7.350-7.450) Arterial Blood Partial Pressure CO2 25.0 mmHg (35.0-48.0) Arterial Blood Partial Pressure O2 60.7 mmHg (83.0-108.0) Arterial Blood HCO3 20.0 mmol/L (21.0-28.0) Arterial Blood Oxygen Saturation 91.3 % (94.0-98.0) Arterial Blood Base Excess -2.2 mmol/L (-2.0-3.0) Arterial Blood Oxyhemoglobin 90.0 % (94.0-98.0) Arterial Blood Carboxyhemoglobin 0.7 % (0.5-1.5) Arterial Blood Methemoglobin 0.7 % (0.0-1.5) Cj Test Yes Blood Gas Total Hemoglobin 8.20 g/dL (13.5-17.5) Blood Gas Liter Flow 0.00 Blood Gas Modality Room air FiO2 % 21.0 Stool Occult Blood Sample #3 Negative (Negative) Test 12/09/24 05:40 12/08/24 06:14 12/08/24 05:25 12/08/24 01:23 Ferritin 11.6 ng/mL (22-322) Vitamin B12 Level 177 pg/mL (211-911) Folic Acid 15.75 ng/mL (>5.38) POC Glucose 130 mg/dl (70-106) Total Bilirubin 0.6 mg/dL (0.2-1.0) Aspartate Amino Transferase (AST) 11 U/L (13-40) Alanine Aminotransferase (ALT) < 9 U/L (7-40) Alkaline Phosphatase 139 U/L (46-116) Total Protein 6.9 g/dL (5.7-8.2) Albumin 4.1 g/dL (3.2-4.8) Hepatitis B Surface Antigen Negative (Negative) Hepatitis C Antibody Negative (Negative) Erythrocyte Sedimentation Rate 34 mm/hr (0-20) Reticulocyte Count (auto) 1.68 % (0.5-1.5) Prothrombin Time 12.4 sec (9.3-11.8) Prothrombin Time INR 1.19 (0.9-1.15) D-Dimer, Quantitative 0.72 mg/L FEU (0.0-0.49) Hemoglobin A1c 6.2 % A1C (<5.7) Magnesium Level 1.9 mg/dL (1.6-2.6) Iron Level 23 ug/dL (65-175) Total Iron Binding Capacity 367 ug/dL (250-425) Percent Iron Saturation 6.3 % (20-55) Lactate Dehydrogenase 253 U/L (120-246) C-Reactive Protein High Sensitivity 0.63 mg/dL (<1.0) Thyroid Stimulating Hormone (TSH) 2.44 uIU/mL (0.55-4.78) Test 12/07/24 23:30 12/07/24 23:25 12/07/24 21:38 Urine Color Light-yellow (Yellow) Urine Clarity Clear (Clear) Urine pH 6.0 (5.0-9.0) Urine Specific [place] 1.010 (1.001-1.035) Urine Protein Trace (Negative) Urine Ketones Negative (Negative) Urine Blood Negative /uL (Negative) Urine Nitrite Negative (Negative) Urine Bilirubin Negative (Negative) Urine Urobilinogen Normal mg/dL (Negative) Urine Leukocyte Esterase Negative /uL (Negative) Urine RBC 3 /hpf (0 - 3) Urine Microscopic WBC 3 /HPF (0-3) Urine Squamous Epithelial Cells None seen /hpf (<5) Urine Bacteria None seen /hpf (None Seen) Urine Glucose Normal mg/dL (Normal) Influenza Type A Antigen Negative (Negative) Influenza Type B Antigen Negative (Negative) SARS-CoV-2 Antigen (Rapid) Negative (NEGATIVE) B-Type Natriuretic Peptide 439.15 pg/mL (0-100) Other Laboratory Tests 12/11/24 05:11 Brief Hx & Hospital Course: This is a 79-year-old male with past medical history of COPD, CHF, diabetes, rheumatoid arthritis, gastric ulcer, treated syphilis, hypertension, dyslipidemia, s/p aortic valve replacement, who came in due to shortness of breath. According to the patient and son at bedside, for the last 4-5 days before coming to the ED, he was experiencing shortness of breath and dyspnea that had progressively gotten worse. Patient also noted a chest pain ongoing for the same duration of time, intermittent in nature, burning in character and 6/10 in intensity, patient believes pain was brought on by eating, walking worsens the pain rest relieves the pain, similar symptoms of chest pain before in the past. Initial chest x-ray was showing bilateral patchy opacities on both lung bases, which were possibly consistent with multifocal pneumonia or pulmonary vascular congestion. The patient was started on IV ceftriaxone azithromycin and was changed to doxycycline and ceftriaxone. A lower extremity arterial Doppler was performed showing 60-75% stenosis in the left common femoral artery. There was no need for surgical intervention at this point. Hemoglobin was in the lower side for which GI was consulted and was scheduled for EGD and colonoscopy but procedures were not performed due to high risk patient with severe aortic stenosis, current pneumonia requiring oxygen and multiple comorbidities. Patient needs to follow up with GI in an outpatient and perform EGD/colonoscopy as outpatient. Most recent CT of the chest is showing no acute intrathoracic abnormality. Patient is currently doing physical therapy which recommended rehabilitation in an SNF. ABG on room air was performed to determine the need of home oxygen but PaO2 came back at 60 mmHg, patient did not qualify for home oxygen at this time. Patient will be discharged to SNF for physical therapy and continue IV antibiotics and care. Patient and family agrees with the plan and care. Physical examination on the day of discharge: General Appearance: Alert, Oriented X3, Cooperative, not in distress HEENT: Atraumatic, PERRLA, EOMI, Mucous membrane moist/pink Respiratory: Decreased breath sound and bilateral fine basal crackles. Cardiovascular: Regular rate, Normal S1, Normal S2, No murmurs, no chest wall tenderness Abdominal: Normal bowel sounds, Soft, No tenderness, No hepatosplenomegaly, No masses Extremities: No clubbing, No cyanosis, No edema, Normal pulses, No tenderness/swelling Skin: No rashes, No breakdown, No significant lesion Neuro: Use walker, Normal speech, Strength at 5/5 X4 ext, Normal tone, Sensation intact, grossly intact cranial nerves. Psych/Mental Status: Mental status NL, Mood NL Discharge plan: -continue with antibiotics to complete seven days of treatment -transfer the patient to SNF for rehabilitation, physical therapy and continue antibiotics -GI appointment as an outpatient for possible EGD/colonoscopy. Discussed with Dr. Flores. Consults/Reason for consult GI for EGD and colonoscopy were not performed due to not cardiac clearance Operations or Procedures CHEST RADIOGRAPH Indication: sob Technique: Single frontal view of the chest was obtained Comparison: None FINDINGS: Lines and Tubes: None Lungs: Bibasilar infiltrates Pleura: No effusion. No pneumothorax. Cardiomediastinal contours: Mild cardiomegaly Bones: No acute osseous abnormality. IMPRESSION: 1. Findings may represent congestive failure or pneumonia. BILATERAL Lower Extremity Arterial Duplex Date: 12/08/2024 12:40 AM Clinical History: DEC/ABSENT PEDAL PULSE ON R Comparison: None Technique: Duplex Doppler evaluation including color Doppler and spectral/pulsed waveform analysis of the lower extremity arteries was performed. Finding: RIGHT: Peak systolic velocities are as follows: [employer] 75 cm/s Deep femoral 35 cm/s SFA proximal 71 cm/s SFA mid-portion 51 cm/s SFA distal 63 cm/s Popliteal 45 cm/s Posterior tibial 40 cm/s Anterior tibial not visualized Peroneal not visualized Dorsalis pedis 40 cm/s The waveforms are monophasic. LEFT: Peak systolic velocities are as follows: [employer] 202 cm/s Deep femoral 79 cm/s SFA proximal 128 cm/s SFA mid-portion 74 cm/s SFA distal 109 cm/s Popliteal 90 cm/s Posterior tibial 74 cm/s Anterior tibial not visualized Peroneal not visualized Dorsalis pedis 87 cm/s The waveforms are triphasic in the common femoral artery and biphasic in the remaining arteries in the left lower extremity. REFERENCE VALUES, [facility] ([facility]) vascular Imaging Lab Criteria: Peak systolic velocity ranges (in cm/sec) are as follows: <150 cm/s - <20 % stenosis 150-200 cm/s - 20-49% stenosis 200-300 cm/s - 50-75% stenosis >300 cm/s -> 75% stenosis IMPRESSION: 1. There is peripheral vascular disease in the right lower extremity evidence thigh monophasic waveforms. No significant stenosis in the right lower extremity. 2. There is 60-75% stenosis in the left common femoral artery. Peripheral vascular disease in the rest of the left lower extremity without high-grade stenosis or occlusion. 3. Bilateral anterior tibial and peroneal arteries not visualized. Bilateral lower extremity venous duplex Clinical History: CALF PAIN ON FLEXION/EXTENSION Comparison: None Technique: Duplex Doppler evaluation of the deep venous systems of both lower extremities from the common femoral veins to the popliteal veins including color Doppler and spectral/pulsed waveform analysis was performed. Findings: RIGHT SIDE: The common femoral vein demonstrates appropriate compressibility and waveform variability. There is compressibility/patency of the great saphenous vein at the proximal thigh. The femoral vein demonstrates appropriate compressibility and waveform variability. The deep femoral vein demonstrates appropriate compressibility and waveform variability. The popliteal vein demonstrates appropriate compressibility and waveform variability. There is normal compressibility at the tibioperoneal trunk. LEFT SIDE: The common femoral vein demonstrates appropriate compressibility and waveform variability. There is compressibility/patency of the great saphenous vein at the proximal thigh. The femoral vein demonstrates appropriate compressibility and waveform variability. The deep femoral vein demonstrates appropriate compressibility and waveform variability. The popliteal vein demonstrates appropriate compressibility and waveform variability. There is normal compressibility at the tibioperoneal trunk. Impression: 1. No deep venous thrombosis in the bilateral lower extremities. Procedure: CT CHEST WITHOUT CONTRAST Reason for study/Clinical History: hypoxia continues Comparison Study: None available at time of dictation. Exam Date: 12/10/2024 02:36 PM TECHNIQUE: Multidetector CT of the chest was performed from the lung apices to the upper abdomen without the use of intravenous contract. Axial, coronal and sagittal multiplanar reformats were performed. Radiation Dose Information: CT Dose: CTDI volume is 12.15 mGy. Dose-length product is 423.75 mGy*cm The dose indicators for CT are the volume Computed Tomography (CT) Dose Index (CTDIvol) and the Dose Length Product (DLP), and are measured in units of mGy and mGy-cm, respectively. These indicators are not patient dose, but values generated from the CT scanner acquisition factors. The report includes radiation exposure data for exposures received during this examination. FINDINGS: Lower neck: Normal thyroid. Lungs: No focal consolidation, pleural effusion or pneumothorax. Heart/Vascular Structures: Normal heart size. No pericardial effusion. Lymph Nodes: No adenopathy Pleura: Trace bilateral pleural effusions. No significant pneumothorax. Musculoskeletal: No acute osseous abnormality. Soft tissues: Normal. Upper abdomen: Limited portions of the upper abdomen are unremarkable. IMPRESSION: 1. No acute intrathoracic abnormality. Condition at Discharge: Good Final Diagnosis/Problems List Acute On chronic hypoxic respiratory failure Possible community-acquired pneumonia: Gram-positive versus Gram-negative COPD exacerbation due to above Acute on chronic diastolic heart failure Peripheral vascular disease Dyslipidemia Hypertension Possible chronic iron defieciency anemia Vitamin B12 deficiency Type 2 diabetes, Hb A1c 6.2 History of rheumatoid arthritis Discharge Disposition: Alf Facility Discharge Instruct/Medications Diet: Cardiac 2g Na,low cholest Activity: No Restrictions, As Tolerated Follow Up/Referral: F/U with his PCP in 2 weeks Medications: Per SNF, continue current antibiotics Discharge Statement: "Patient was advised to return to the ER or call 911 if any headaches, dizziness, shortness of breath, chest pain, abdominal pain, bleeding, fevers, or worsening of medical condition. Patient was counseled about treatment plan, medications, possible side effects, patientverbalized understanding. All questions were answered to the best of my ability. This discharge took greater then 30 minutes in planning, reviewing documentation, counseling the patient, and discussing with other team members." ASSESSMENT ASSESSMENT Assessment Acute On chronic hypoxic respiratory failure Possible community-acquired pneumonia: Gram-positive versus Gram-negative COPD exacerbation due to above Acute on chronic diastolic heart failure Peripheral vascular disease Dyslipidemia Hypertension Possible chronic iron defieciency anemia Vitamin B12 deficiency Type 2 diabetes, Hb A1c 6.2 History of rheumatoid arthritis Addendum Addendum Addendum I was physically present for the west portions of the service provided to patient by THE RESIDENT. I have reviewed the documentation, discussed the case with resident and agree with the resident's documentation except as noted. Also the patient's clinical case was discussed with the patient's nurse. This medical document was created using an electronic medical record system with computerized dictation system. Although this document has been carefully reviewed, there might still be some phonetic and typographical errors. These areas are purely typographical due to imperfections of the software programs, and do not reflect any compromise in the patient's medical care. Late signature. Date of Service: Dec 12, 2024 Billing Provider: LUCAS FLORES MD Common Visit Codes: 08451-HMO/OBS DISCH DAY >30min SHAMAR WATT Dec 12, 2024 12:46 LUCAS FLORES MD Dec 12, 2024 18:56
--- NOTE | 2024-12-12 19:05 | DVHPN2 ---
Progress Note - Dictate Date Seen: Dec 12, 2024 Medical Necessity Reason Pt with a Central, PICC or Fol: No Subjective Patient was seen and evaluated in follow up. Patient has no new complaints at this time. Patient denies any cardiac symptoms. Patient is cardiac stable for discharge. Telemetry reviewed. vital signs Vital Sign Date Time Temp Pulse Resp B/P (MAP) Pulse Ox O2 Delivery O2 Flow Rate FiO2 12/12/24 10:00 96 Nasal Cannula 2.0 12/12/24 10:00 28 12/12/24 09:46 144/48 12/12/24 09:40 98.3 72 19 98.3 Total Intake and Output 12/11/24 12/11/24 12/12/24 15:00 23:00 07:00 Intake Total 450 ml 100 ml Output Total 600 ml 350 ml Balance -150 ml -250 ml medications Current Medications Medications Dose Ordered Sig/Brandy Route Start Time Stop Time Status Last Admin Dose Admin Nitroglycerin 0.4 mg Q5MINP PRN SL 12/08/24 00:00 Pantoprazole Sodium 40 mg DAILY IV 12/08/24 10:00 12/12/24 09:45 40 MG Ceftriaxone Sodium 50 ml @ 100 mls/hr DAILY@2100 IV 12/08/24 21:00 12/11/24 21:02 100 MLS/HR Ipratropium [place] 0.5 mg Q8HR NEB 12/08/24 06:00 12/12/24 06:24 0.5 MG Albuterol 2.5 mg Q8HR NEB 12/08/24 06:00 12/12/24 06:24 2.5 MG Atorvastatin Calcium 80 mg HS PO 12/08/24 22:00 12/11/24 21:03 80 MG Amlodipine Besylate 5 mg DAILY PO 12/08/24 10:00 12/12/24 09:46 5 MG Clopidogrel Bisulfate 75 mg DAILY PO 12/08/24 10:00 12/12/24 09:46 75 MG Tamsulosin HCl 0.4 mg QPM PO 12/08/24 18:00 12/11/24 18:08 0.4 MG Losartan Potassium 50 mg DAILY PO 12/09/24 10:00 12/12/24 09:46 50 MG Acetaminophen/ Hydrocodone Bitart 1 tab Q6HPRN PRN PO 12/09/24 11:45 12/12/24 09:45 1 TAB Hydralazine HCl 10 mg Q6HP PRN IV 12/09/24 11:45 12/10/24 15:12 10 MG Doxycycline Monohydrate 100 mg Q12HR PO 12/10/24 22:00 12/12/24 09:45 100 MG objective GENERAL: Awake, alert, oriented. LUNGS: Decreased breath sound and bilateral basal crackles. CARDIOVASCULAR: Heart sounds are good. ABDOMEN: Soft. laboratory and microbiology Laboratory Tests 12/11/24 05:11 Test 12/11/24 05:11 Range/Units Serum Glucose 116 H 74-106 mg/dL Problem List Acute on chronic hypoxic respiratory failure. Community-acquired pneumonia. COPD exacerbation. Acute on chronic diastolic heart failure. Peripheral vascular disease. Dyslipidemia. Hypertension. Vitamin B12 deficiency. Type 2 diabetes. History of rheumatoid arthritis. Assessment/Plan Continued all current supportive medical care. [place] for pain management. Amlodipine, Losartan. Lipitor, Plavix. Antibiotics as ordered. GI prophylactics. IV Hydralazine for a SBP >150. Additional plan as per the hospital course. Plan discussed with: Patient CHAPINCITO ANDERSEN MD Dec 12, 2024 13:22
--- NOTE | 2024-12-12 21:41 | DVHPN2 ---
Progress Note - Dictate Date Seen: Dec 12, 2024 (Late entryTime of visit 2:00 p.m.) Medical Necessity Reason Pt with a Central, PICC or Fol: No Subjective No new complaints, patient is tolerating diet Shortness of breath has improved Patient had one bowel movement and no GI bleeding was reported;, hemoglobin stable at 8.6 Echo : Moderate aortic stenosis EF 50 -55 % vital signs Vital Sign Date Time Temp Pulse Resp B/P (MAP) Pulse Ox O2 Delivery O2 Flow Rate FiO2 12/12/24 17:16 98.8 65 19 140/59 (86) 94 98.8 12/12/24 13:37 Nasal Cannula 2.0 12/12/24 13:37 28 Total Intake and Output 12/11/24 12/11/24 12/12/24 15:00 23:00 07:00 Intake Total 450 ml 100 ml Output Total 600 ml 350 ml Balance -150 ml -250 ml objective General Appearance: Alert, Oriented X3, Cooperative, No acute distress HEENT: Atraumatic, PERRLA, EOMI Respiratory: Other (Trace crackles, decreased bilateral breath sounds) Cardiovascular: Regular rate, Normal S1, Normal S2 Abdominal: Normal bowel sounds, Soft, No tenderness Extremities: Other (Decreased pedal pulse on the right, +1 lower extremity edema) Skin: No rashes, No significant lesion Neuro: Normal speech, Sensation intact Psych/Mental Status: Mental status NL, Mood NL laboratory and microbiology Laboratory Tests 12/11/24 05:11 Test 12/11/24 05:11 Range/Units Serum Glucose 116 H 74-106 mg/dL Problems(with codes): (1) Heme positive stool (2) Aortic stenosis (3) Microcytic anemia (4) Pneumonia (5) Acute systolic (congestive) heart failure (6) COPD exacerbation (7) Shortness of breath Prognosis Plan Discharge planning is in progress Patient will follow up with Cardiology, get cardiac stabilization and clearance Outpatient elective panendoscopy once medically stabilized Once again thank you for allowing me to participate in the care of this patient Plan discussed with: Patient, Other (Dr Fernandez) CLIFF DO MD Dec 12, 2024 21:41
--- NOTE | 2024-12-13 15:10 | ECG ---
[facility] Test Date: 2024-12-10 Test Time: 15:43:21 Pat Name: SARAHI PAULSON Department: Respiratoy Room: 0250T A Gender: M Research Program Assistant: GB : 1945 Requested By: SHAMAR GALAN Order Number: [id number] Reading MD: Angel Erickson Measurements Intervals [place] Rate: 79 P: 38 WV: 154 QRS: -21 QRSD: 92 T: 188 QT: 360 QTc: 413 Interpretive Statements Sinus rhythm Borderline left axis deviation Repol abnrm suggests ischemia, anterolateral Electronically Signed On 12-15-2024 9:26:55 PST by Angel Erickson Please click the below link to view image of tracing.
== END 2024-12-12 17:24 | DRG 177 ==
LOC: EDBD 21:22 → ER 21:22 → TELE 23:46 → TELE-EAST 12-08 15:09
PROVIDERS: ADMIT Internal Medicine; ATTEND Emergency Medicine
DX: J15.69 Pneumonia due to other Gram-negative bacteria (principal); I50.33 Acute on chronic diastolic (congestive) heart failure; J96.21 Acute and chronic respiratory failure with hypoxia; J44.1 Chronic obstructive pulmonary disease with (acute) exacerbation; J44.0 Chronic obstructive pulmonary disease with (acute) lower respiratory infection; I11.0 Hypertensive heart disease with heart failure; J15.9 Unspecified bacterial pneumonia; Z20.822 Contact with and (suspected) exposure to COVID-19; E78.5 Hyperlipidemia, unspecified; D50.9 Iron deficiency anemia, unspecified; M06.9 Rheumatoid arthritis, unspecified; M54.9 Dorsalgia, unspecified; E53.8 Deficiency of other specified B group vitamins; E11.51 Type 2 diabetes mellitus with diabetic peripheral angiopathy without gangrene; Z95.2 Presence of prosthetic heart valve; Z87.11 Personal history of peptic ulcer disease; I25.2 Old myocardial infarction
CPT/HCPCS: 36415; 36600; 71045; 71250; 80048; 80053; 81001; 82270; 82607; 82728; 82746; 82805; 82962; 83036; 83540; 83550; 83615; 83735; 83880; 84443; 84484; 85025; 85045; 85379; 85610; 85652; 86141; 86803; 87081; 87340; 87426; 87804; 93005; 93306; 93925; 93970; 94640; 96374; 97110; 97116; 97163; 99291; G0378; J1756; J2470; J7042